=== PATIENT | female | born 1955 | race Caucasian/White ===

== ENCOUNTER 2024-01-31 16:29 | Inpatient (IN) | payer MEDICARE, SELFPAY ==
[2024-01-31] VITALS (7 sets, daily range): BP systolic 113–140; BP diastolic 74–83; BMI 25.0; BMI 27.0
--- NOTE | 2024-01-31 12:53 | ED.GENMED ---
History of Present Illness
General
Chief Complaint: Abdominal Symptoms
Source: patient
Exam Limitations: none
Time Seen by Provider: 01/31/24 12:24
Nursing documentation reviewed up to this point in time: agreed with
History of Present Illness
History of Present Illness:
PT IS A 68 Y/O F
h/o diverticulosis
no chronic problems
here with fever/chills/vomiting
started 4 days ago
she says it started with suspected fever and shaking chills; then she got nauseated and says she is vomiting with intake
she feels dehydrated
mild cough, fatigue
no back pain, urinary symptoms, sore throat
Past History
Past History
ED Past Medical History: GERD and Other (Diverticulosis, Diverticulitis, melanoma)
Social History
Personal: Single
Living: alone
Employment: Employed
Review of Systems
Review of Systems
Allergies reviewed?: Yes
All Other Systems: Not applicable
Phy Exam
Physical Exam
Physical Exam:
GENERAL: Alert , in no apparent distress, nonotoxic
EYE: pupils equal and reactive
NECK: Supple
ENT: o/p clr, mmm.
CARDIAC: Regular rate and rhythm .
LUNGS: Clear breath sounds bilaterally, no acute respiratory distress, no wheezes/rales/rhonchi
ABDOMEN: Soft mildly distended, without focal tenderness, no r/g, no cvat, normal bowel sounds
NEUROLOGICAL: Alert and oriented, no focal neuro deficits
SKIN: Warm and dry, skin intact.
MUSCULOSKELETAL: No edema, well perfused. neg bimal's sign
PSYCH: Normal and appropriate interaction.
Course
Orders/Labs/Results
Orders:
Orders
01/31/24
PTH [Intact PTH Includes Calcium] Urgent
01/31/24 12:48
0.9% Sodium Chloride 1000 ml [Nss] 1,000 ml IV BOLUS
Acetaminophen [Tylenol] 650 mg PO NOW STA
Ondansetron Injectable [Zofran] 4 mg IV NOW STA
01/31/24 13:11
COVID-19 Antigen Urgent
Source: Nasal Swab
Comprehensive Metabolic Panel Urgent
Lipase Urgent
Phosphorus Urgent
Comment: ADDON
TSH Reflex To Free T4 Urgent
Urinalysis Reflex To Culture Urgent
Date Specimen was Collected: 01/31/24
Time Specimen was Collected: 12:51
Urine Creatinine Urgent
Date Specimen was Collected: 01/31/24
Time Specimen was Collected: 12:51
Comment: ADD ON
Urine Microscopic Reflex Cult Urgent
Urine Protein Urgent
Date Specimen was Collected: 01/31/24
Time Specimen was Collected: 12:51
Comment: ADD ON
Urine Sodium Urgent
Date Specimen was Collected: 01/31/24
Time Specimen was Collected: 12:51
Comment: ADD ON
Vitamin D, 25-OH Urgent
Influenza A+B Rapid Molecular Urgent
JANA Source: Nasal Swab
Specimen Description:
Urine Culture Urgent
JANA Source: U
Specimen Description:
Date Specimen was Collected: 01/31/24
Time Specimen was Collected: 12:51
01/31/24 14:06
Bladder Scan- Treatment ONCE
01/31/24 14:55
0.9% Sodium Chloride 1000 ml [Nss] 1,000 ml IV BOLUS
01/31/24 15:09
CT Abd/pel Without Iv Or Oral Urgent
Comment:
Reason For Exam: arf, urine infection, vomiting, fever
CefTRIAXone [Rocephin] 1,000 mg IV NOW STA
01/31/24 15:53
Complete Blood Count/With Diff Urgent
Blood Culture Urgent
JANA Source: Blood/Venous
Specimen Description:
01/31/24 16:00
0.9% Sodium Chloride 1000 ml [Nss] 1,000 ml IV 150 mls/hr
01/31/24 16:06
NEPHROLOGY CONSULT Routine
Consulting Provider: Libertad Wood
Was physician already notified: Yes
Reason for consult: arf, hypercalcemia
01/31/24 16:07
Pamidronate Disodium [Aredia] 60 mg 0.9% Sodium Chloride 250 ml [Nss] 250 ml IV ONCE
01/31/24 16:14
Admit/Transfer Patient As Directed
Co-Sign Provider:
Level of Care: Inpatient admission
Assign to:: Telemetry
Physician / Group: jayda gutierrez
Diagnosis: ARf unclear, Nausea/vomiting, hypercalcemia, febrile illness
Reason for Telemetry: Arrhythmia
Date to Stop Telemetry: 02/03/24
Time to Stop Telemetry: 11:00
Reason for Hospitalization: ARf unclear, Nausea/vomiting, hypercalcemia, febrile illness
Expected length of stay greater than two midnights?: Yes
ELOS- Estimated Length of Stay in days: 4
I certify the patient meets the requirements for IP care: Yes
01/31/24 16:16
Code Status As Directed
Resuscitation Status: Full Code
01/31/24 16:19
PRN Pain Medication Management As Directed
May give lesser potent ordered pain med per pt: Yes
preference::
Protocol:: Medication orders for pain may be administered in a
manner that supports deferring to patient preference
when the pt is:
- Requesting an ordered lesser potent pain medication.
Least to most potent pain medications are defined
as: acetaminophen < NSAID < tramadol < opioids
(morphine, oxycodone, hydromorphone).
- Requesting a lesser dose of the same medication IF
ORDERED.
- Requesting a less intrusive route of administration
if both routes are prescribed by the provider (PO <
IV).
01/31/24 16:22
Add On- LAB Routine
Tests Added?: urine sodium, u creeatinine, urine protein
EKG [Electrocardiogram (*1)] Urgent
Reason for Study: Other
Other Reason for Exam: hypercalcemia
01/31/24 16:23
Bladder Scan As Directed
Follow Bladder Retention/Intermittent Cath Algorithm?: Yes
PRN if no void in __ hours: 6
Frequency: Per Retention Algorithm
If Bladder Scan Result >: 400
then:: Straight cath
Straight Cath As Directed
Frequency: Per Retention Algorithm
Additional Instructions: straight cath as needed per acute urinary retention algorithm for 24 hrs
Additional Instructions: for bladder scan greater than 400 mL
01/31/24 17:48
Acetaminophen [Tylenol] 650 mg PO Q4HPRN PRN
Ondansetron Injectable [Zofran] 4 mg IV Q6HPRN PRN
01/31/24 17:48
Activity As Directed
Activity Level: As Tolerated
Intake/ Output As Directed
Frequency: Per unit guidelines
Vital Signs As Directed
Frequency: Per unit guidelines
Weight As Directed
Frequency: Daily
DX Deep Vein Thrombosis Video Routine
01/31/24 20:00
Heparin 5,000 units SC Q12
02/01/24 06:37
Complete Blood Count/With Diff IN AM
Comprehensive Metabolic Panel IN AM
Magnesium IN AM
Protein Electrophoresis Reflex [S] IN AM
02/01/24 18:00
CefTRIAXone [Rocephin] 1,000 mg IV Q24H
02/02/24 06:00
Complete Blood Count/With Diff IN AM
Comprehensive Metabolic Panel IN AM
02/03/24 06:00
Complete Blood Count/With Diff IN AM
Comprehensive Metabolic Panel IN AM
02/03/24 11:00
DC Protocol for Telemetry ONCE
Abnormal Lab Results
01/31/24 01/31/24
13:11 15:53
WBC 11.4 H 10^3/uL
(4.8-10.8)
Hct 35.7 L %
(37.0-47.0)
MPV 10.9 H fL
(7.4-10.4)
Absolute Neuts (auto) 9.3 H 10^3/uL
(1.4-6.5)
Absolute Lymphs (auto) 0.7 L 10^3/uL
(1.2-3.4)
Absolute Monos (auto) 1.5 H 10^3/uL
(0.1-0.6)
Neutrophils % 80.8 H %
(42.2-75.2)
Lymphocytes % 5.7 L %
(20.5-51.1)
Monocytes % 12.7 H %
(1.7-9.3)
BUN 70 H mg/dl
(7-17)
Creatinine 3.2 H mg/dL
(0.6-1.0)
Calcium 13.7 H* mg/dl
(8.4-10.2)
Total Bilirubin 2.1 H mg/dl
(0.2-1.3)
AST 49 H U/L
(14-36)
ALT 67 H U/L
(0-35)
Alkaline Phosphatase 189 H U/L
(38-126)
Total Protein 6.0 L g/dl
(6.3-8.2)
Albumin 3.3 L g/dl
(3.5-5.0)
PTH Intact 235.1 H pg/ml
(13.6-85.8)
Ur Occult Blood Reflex 3+ A
(Negative)
Urine Nitrite (Reflex) Positive A
(Negative)
Urine Bilirubin 1+ A
(Negative)
Urine Urobilinogen 3+ A
(Neg - 1+)
Leukocyte Esterase Rfl 2+ A
(Negative)
Urine RBC 3-6 A /HPF
(0-2)
Urine WBC (Reflex) 26-30 A /HPF
(0-5)
Urine Bacteria (Reflex) Moderate A
(Negative)
Urine Total Protein 120 H mg/dl
(0-12)
Urine Albumin (Reflex) 1+ A
(Neg - Trace)
01/31/24 15:53
01/31/24 13:11
Vital Signs
Initial and Last Documented VS:
Initial Vital Signs
Temp Pulse Resp BP Pulse Ox
101.6 F H 105 16 113/76 100
01/31/24 12:12 01/31/24 12:12 01/31/24 12:12 01/31/24 12:12 01/31/24 12:12
Last Documented Vital Signs
Temp Pulse Resp BP Pulse Ox
97.7 F 84 16 133/79 96
02/01/24 07:30 02/01/24 07:30 02/01/24 07:30 02/01/24 07:30 02/01/24 07:30
MDM/Problems Addressed
Differential Diagnosis Includes:
pyelo, obstructing uropathy, renal failure, gastritis, choledocholithiasis
MDM/Problems Addressed:
68 yo F healthy; h/o gato int he past
4 days of chills/subjective fever and vomiting with eating/drinking
no abd pain, no cold sxs
febrile on arrival, bp stable
abdomen soft, nontender, mild distension
bladder scan 35
ARF bun 70, cr 3.2, ca 13.7
t bili 2.1, mild transmaminitis; lipase normal
pending noncon ct
ua nitrite pos, also with bili, awaitint he micro but i am empirically treating with rocephin
getting IVF; i think prerenal azotemia from not eating/drinking; wonder if she has some underlying maglignancy; but doing ct to r/o uro obstruction;
in meantime, she will be admitted, pending cultures, IV abx, IVF;
*Critical Care Note
Total Time (30-74mins, 75-104mins- exclusive of procedures): Not Applicable
ED Attending Note
-
Portions of this chart may have been created with voice recognition software.� Occasional wrong word or��sound alike� substitutions may have occurred due to the inherent limitations of voice recognition software.
Discharge Plan
Departure
Patient Disposition: Admit
Date of Disposition: 01/31/24
Time of Disposition: 15:12
Admit to: Med/Surg
Presentation/result/management discussed w/ accepting MD/DO: Hospitalist
Condition: Fair
Covid-19: Not Applicable
Discharge Problem:
Pyelonephritis, Acute renal failure
Interventions
Interventions:
*Risk Screen - Suicide Last Done: 01/31/24 13:25
*General Assessment Last Done: 01/31/24 13:25
*Neglect/Abuse Screening Last Done: 01/31/24 13:25
ED- Fall Risk Assessment Last Done: 01/31/24 13:25
*ED COVID-19 Vaccine History Last Done: 01/31/24 13:25
*Nursing Disposition Last Done: 01/31/24 17:45
VV-Xtzlcq-Sojxckhndl Assessment Last Done: 01/31/24 13:25
Discharge Date and Time
Discharge Date/Time: 01/31/24 17:45
[2024-01-31] MEDS: ZOFRAN 4 MG IV (13:20)
[2024-01-31] MEDS: TYLENOL 650 MG PO (13:20)
[2024-01-31] MEDS: NSS 1000 IV ×4 (13:23→23:59)
[2024-01-31 13:39] LABS: COVID-19 Antigen Negative (Negative)
[2024-01-31 13:58] LABS: ALT (SGPT) 67 U/L (0-35); AST (SGOT) 49 U/L (14-36); Albumin 3.3 g/dl (3.5-5.0); Alkaline Phosphatase 189 U/L (38-126); Blood Urea Nitrogen 70 mg/dl (7-17); Calcium 13.7 mg/dl (8.4-10.2); Carbon Dioxide 24 mmol/L (22-30); Chloride 104 mmol/L (98-107); Estimated Creatinine Clearance 16 ml/min; Glucose 99 mg/dl (70-99); Lipase 35 U/L (23-300); Potassium 4.5 mmol/L (3.5-5.1); Sodium 139 mmol/L (135-145); Total Bilirubin 2.1 mg/dl (0.2-1.3); eGFR 15.39
[2024-01-31 14:53] LABS: Urine Albumin 1+ (Neg - Trace); Urine Bilirubin 1+ (Negative); Urine Character Clear (Clear); Urine Color Yellow; Urine Glucose Negative (Negative); Urine Ketone Negative (Negative); Urine Leukocyte 2+ (Negative); Urine Nitrite Positive (Negative); Urine Occult Blood 3+ (Negative); Urine Specific Gravity 1.015 (<1.030); Urine Urobilinogen 3+ (Neg - 1+)
[2024-01-31] MEDS: ROCEPHIN 1000 MG IV (15:18)
--- NOTE | 2024-01-31 15:30 | HPS.HSE ---
Family Physician
-
Family Physician: Darrell Mcgregor
Chief Complaint
-
Nausea, vomiting, fever
History of Present Illness
68-year-old female who reports 5 days ago starting with subjective fever, shaking chills. She then developed persistent nausea, vomiting and chills over the past 4 days with inability to keep anything down including sips of water. She reports she
has voided only once a day for the last 4 days. She complains of feeling dehydrated with overall fatigue and a mild cough. She denies any headache, sore throat, runny nose, chest pain, palpitations, shortness of breath, abdominal pain, flank pain,
diarrhea, urinary symptoms, rash, sick contacts. She reports only taking 1 dose of Naprosyn on Tuesday which she would only take as needed if sick. She was unable to hold that down due to vomiting. She has not taking any of her other medications.
She has past medical history of GERD, diverticulosis/diverticulitis, melanoma right leg removal 2005, prior cholecystectomy
Medical History
Past Medical History
Past Medical History: Reports Other
Additional Past Medical History:
GERD
diverticulosis/diverticulitis
melanoma right leg removal 2005
prior cholecystectomy
Past Surgical History: Reports Other
Additional Past Surgical History:
Melanoma with removal from right leg 2005
Cholecystectomy
Ectopic 1993
Tonsillectomy
[place] teeth extraction
Social History
Tobacco: Smoker (Three-quarter pack a day x 49 years, 1/4 pack a day x 1 year 2019 07-2023)
Alcohol: Occasional (Twice a month)
Drug: None
Living: Alone
Employment: Employed (At a school)
Family History
Family History: Other (Mother ruptured aneurysm history hypertension, DM 2)
Allergies / Home Medications
Allergies reflects when Allergies were last updated in [facility].
Home Medications with original date entered in [facility]
Allergy/Medication List:
Allergies
Allergy/AdvReac Type Severity Reaction Status Date / Time
codeine [Codeine] Allergy sweating, Verified 01/31/24 12:14
lightheaded,
passed out
Opioids - Morphine Analogues Allergy severe Verified 01/31/24 12:14
headachaes,
passed out
Home Medications
cyanocobalamin (vitamin B-12) 1,000 mcg tablet 1,000 mcg PO DAILY 01/31/24
ferrous sulfate 325 mg (65 mg iron) tablet 325 mg PO DAILY 01/31/24
magnesium oxide 400 mg PO DAILY 01/31/24
naproxen sodium 220 mg tablet (Aleve) 220 mg PO BIDPRN PRN mild pain 01/31/24
Review of Systems
-
History Source: Patient
A 12 point ROS was completed and negative except as noted: Yes
Constitutional: Reports Fever and Chills; Denies Fatigue
EENT: Denies Sore Throat, Mouth Swelling or Runny Nose
Respiratory: Denies Cough or Trouble Breathing
Cardiac: Denies Chest Pain, Diaphoresis, Palpitations or Syncope
Abdomen/GI: Reports Nausea and Vomiting; Denies Abdominal Pain, Diarrhea, Constipated, Bloody Stools or Black Stools
: Denies Dysuria, Frequency, Flank Pain, Incontinence, Difficulty Voiding or Urgency
Musculoskeletal: Denies Joint Pain, Muscle Pain or Edema
Skin: Denies Itching or Rash
Neurological: Denies Dizzy, Headache or Weakness
Endocrine: Reports No Symptoms
Hematologic/Lymphatic: Reports No Symptoms
Psych: Reports Calm
Physical Exam
Vital Signs
Vital Signs
Temp Pulse Resp BP Pulse Ox
99.0 F 82 16 132/79 99
01/31/24 15:21 01/31/24 14:46 01/31/24 14:46 01/31/24 14:46 01/31/24 14:46
Physical Exam
General: Comfortable, Conversant, Fever and Chills; No Pain
HEENT: NormoCephalic, Anicteric, PERRLA, Linganore Conjunctivae, No Ptosis, Neck Nontender (Negative nuchal rigidity) and Other (Dry oral mucosa)
Respiratory: Clear; No Wheezes, Rales or Rhonchi
Cardiac: S1/S2 and Regular Rhythm; No Murmur, Rub, Gallop or Peripheral Edema
Breast: Deferred by me
GI: Soft, Non Tender, Non Distended, Normal Bowel Sounds and No Hepatosplenomegaly
Rectal: Deferred by Provider
Genito-urinary: Deferred by me and No costovertebral tender
Musculoskeletal: No Clubbing, No Cyanosis and No Edema
Skin: Warm and Dry; No Rash or Jaundice
Neuro: AO x 3, No Motor Deficits, Nonfocal/grossly intact, Cranial Nerves Intact and No Sensory Deficits; No Slurred Speech, Facial Droop or Tremors
Psych: Calm
Laboratory Results
-
01/31/24 13:11
Laboratory Results
Total Bilirubin 2.1 mg/dl (0.2-1.3) H 01/31/24 13:11
AST 49 U/L (14-36) H 01/31/24 13:11
ALT 67 U/L (0-35) H 01/31/24 13:11
Alkaline Phosphatase 189 U/L (38-126) H 01/31/24 13:11
Lipase 35 U/L (23-300) 01/31/24 13:11
Data Reviewed
-
Lab Data: Labs Reviewed by me
Impression/Plan
-
Impression/plan:
Admit to telemetry
# Pyuria-asymptomatic
Temp 101.6 F, HR 82, 132/79, COVID-negative
-Follow urine culture, blood culture
-IV Rocephin 1gm cont
-follow cbc,cmp
check flu swab
#Acute renal failure possibly 2/2 nausea vomiting
Creat 3.2/bun 70
IV NSS 2 L, continue IV NSS 125cc/h
-Follow BMP
-Consult nephro
-Hold Naprosyn 220 mg twice daily as needed home med pt took one dose 01/27/24 does not take routinely
CT abd pelvis Pending
#Acute hypercalcemia
Corrected calcium 14.3
-IV NSS 2 L given in ER then Iv NSS 125cc/hr
-Pamidronate 60 mg IV x 1
-Follow calcium level in a.m.
-check pth, vit d, phos, mag, tsh free t4 , spep
- check EKG
#Acute transaminitis likely reactive
-Follow CMP
#Diverticulosis/diverticulitis Hx
#Melanoma with removal from right leg 2005
DVT prophylaxis
Subcu heparin
Full code
[2024-01-31 15:55] LABS: Urine Amorphous Seen
[2024-01-31 15:57] LABS: Urine Granular Cast 0-2 /LPF (0); Urine Hyaline Cast 0-2 /LPF (0-2)
[2024-01-31 15:58] LABS: Urine Bacteria Moderate (Negative); Urine White Cell 26-30 /HPF (0-5)
[2024-01-31 16:07] LABS: % Basophils 0.2 % (0-2); % Eosinophils 0.3 % (0-6); % Immature Granulocytes 0.3 % (0-0.5); % Lymphocytes 5.7 % (20.5-51.1); % Monocytes 12.7 % (1.7-9.3); % Neutrophils 80.8 % (42.2-75.2); Absolute Lymphocytes 0.7 10^3/uL (1.2-3.4); Absolute Monocytes 1.5 10^3/uL (0.1-0.6); Absolute Neutrophils 9.3 10^3/uL (1.4-6.5); Hematocrit 35.7 % (37.0-47.0); Hemoglobin 12.4 g/dL (12.0-16.0); Mean Corp Hgb Conc. 34.7 g/dL (33.0-37.0); Mean Corpuscular Hgb 29.2 pg (27.0-31.0); Mean Platelet Volume 10.9 fL (7.4-10.4); Nucleated Red Blood Cells % 0 %; Platelet Count 242 10^3/uL (130-400); Red Blood Cell Count 4.25 10^6/uL (4.20-5.40); Red Cell Dist. Width 14.1 % (11.5-14.5); White Blood Cell Count 11.4 10^3/uL (4.8-10.8)
--- NOTE | 2024-01-31 16:11 | W.CON.NEPH ---
Consultation
-
Date/Time Consultation Requested: 01/31/24 1606
Date/Time Consultation Performed: 01/31/24 1630
Requesting Provider: Krystin Perez
Performing Provider: Libertad Andrews
Reason for Consultation: IMER, high calcium
Medical History
-
Chief Complaint: n/v, fever
History of Present Illness:
68-year-old female who has chr mild hypercalcemia, kidney stone, GERD, melanoma resection Diverticulosis had fever since 5 days ago, since then She developed persistent nausea, vomiting and chills over the past 4 days with inability to keep anything
down including sips of water. She reports she has voided only once a day for the last 4 days. She complains of feeling dehydrated with overall fatigue and a mild cough. She denies any headache, chest pain, shortness of breath, abdominal pain,
flank pain, diarrhea, urinary symptoms, rash, sick contacts. She reports only taking 2 dose of Naprosyn on Tuesday which she would only take as needed if sick. She was unable to hold that down due to vomiting. She has not taking any of her other
medications.
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 She could not continue to work yesterday with severe fatigue. She has not seen Doctor for 6years and just recently saw new PCP and had not had chance to get blood work yet.
In ER her cr is 3.2, tomás corrected 14.3. She reports taking of VIt D2 weekly for last 2months, denies any calcium meds or tumps. known h/o kidney stones and she thinks may be passing stone with in last 1month as she noticed mild hematuria resolved
on its own.
Past Medical History
chr hypercalcemia
K stone
GERD
diverticulosis/diverticulitis
Past Surgical History: Other (Melanoma with removal from right leg 2005 Cholecystectomy Ectopic 1993 Tonsillectomy [place] teeth extraction)
Social History
Tobacco: Smoker (Three-quarter pack a day x 49 years, 1/4 pack a day x 1 year 2019 07-2023, last smoked few days ago)
Alcohol: Occasional
Living: Alone
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
Family History
Mother dies with ruptured aneurysm, HTN, DM
no CKD
Allergies / Home Medications
Allergy/AdvReac Type Severity Reaction Status Date / Time
codeine [Codeine] Allergy sweating, Verified 01/31/24 12:14
lightheaded,
passed out
Opioids - Morphine Analogues Allergy severe Verified 01/31/24 12:14
headachaes,
passed out
�Medication �Instructions �Recorded �Confirmed �Type
cyanocobalamin (vitamin B-12) 1,000 mcg PO DAILY 01/31/24 01/31/24 History
1,000 mcg tablet
ferrous sulfate 325 mg (65 mg 325 mg PO DAILY 01/31/24 01/31/24 History
iron) tablet
magnesium oxide 400 mg PO DAILY 01/31/24 01/31/24 History
naproxen sodium 220 mg tablet 220 mg PO BIDPRN PRN mild pain 01/31/24 01/31/24 History
(Aleve)
Review of Systems
-
All complete 12 point ROS have been inquired and found negative other than stated in HPI
Physical Exam
Vital Signs
Vital Signs
Temp Pulse Resp BP Pulse Ox
99.0 F 82 16 132/79 99
01/31/24 15:21 01/31/24 14:46 01/31/24 14:46 01/31/24 14:46 01/31/24 14:46
Lab Results
WBC 11.4 10^3/uL (4.8-10.8) H 01/31/24 15:53
RBC 4.25 10^6/uL (4.20-5.40) 01/31/24 15:53
Hgb 12.4 g/dL (12.0-16.0) 01/31/24 15:53
Hct 35.7 % (37.0-47.0) L 01/31/24 15:53
Plt Count 242 10^3/uL (130-400) 01/31/24 15:53
Sodium 139 mmol/L (135-145) 01/31/24 13:11
Potassium 4.5 mmol/L (3.5-5.1) 01/31/24 13:11
Chloride 104 mmol/L (98-107) 01/31/24 13:11
Carbon Dioxide 24 mmol/L (22-30) 01/31/24 13:11
BUN 70 mg/dl (7-17) H 01/31/24 13:11
Creatinine 3.2 mg/dL (0.6-1.0) H 01/31/24 13:11
eGFR 15.39 01/31/24 13:11
Glucose 99 mg/dl (70-99) 01/31/24 13:11
Albumin 3.3 g/dl (3.5-5.0) L 01/31/24 13:[address] abd with out contrast:
IMPRESSION:
1. Mild bilateral renal/perinephric edema, right greater than left. Findings nonspecific with differential including recently passed stone or ascending urinary tract infection/pyelonephritis, in the appropriate clinical context. Evaluation limited
without contrast.
2. Mild L1 compression deformity, new from 2016 and age indeterminate, although chronic appearing. Recommend correlation for any point tenderness in this region.
3. No other significant abnormality identified in the abdomen or pelvis, within the limits of unenhanced CT, as described above.
Physical Exam
General: Awake, Alert, Oriented, AOx3 and No Distress
HEENT: EOMI, Anicteric, Neck Supple, No JVD and Other (dry mucous mem)
Respiratory: Clear, Normal Excursion and Nonlabored Respirations
Cardiac: S1/S2 and Regular Rate/Rhythm
Breast: Deferred by me
Abdomen: Soft, Nontender and Nondistended
Rectal: Deferred by Provider
Musculoskeletal: No Edema
Skin: No Rash and No Cyanosis
Neuro: Nonfocal/Grossly Intact
Psych: Mood/afflect pleasant, Insight/judgement good and Appropriate
Data Reviewed
-
Labs: Labs Reviewed by me and Discussed with Patient
Assessment/Plan
-
IMP:
Febrile illness
perinephric edema Rt>left, recently passed stone as per history and can not r/o pyelo
Acute renal failure-no baseline
Acute on chronic Hypercalcemia
K stone
Transaminitis
mild hypoalbuminemia
Diverticulosis/diverticulitis Hx
Melanoma with removal from right leg 2005
Plan:
A/w poor po tolerance and fever
IMER possible prerenal with poor intake+hypercalcemia
however can not r/o underlying CKD since had no medical care for 6yrs
UA ?UTI, check U lytes, bladder scan
ok for isotonic IVF [id number]
agree with Pamidronate 60mg x1, avoid tomás or vit D meds
check vit D, PTH,TSH if neg then check PTHrP
also check paraprotein w/u
BP are stable
avoid nephrotoxins
labs in am
d/w pt
No emergent indication of HD
CT results noted after seeing pt-pernephric edema Rt>left, recently passed stone as per history and can not r/o pyelo-await cx, abx per primary
--- NOTE | 2024-01-31 16:28 | W.PN.UPDATE ---
Update Note
Progress Note Update
This is an addendum to the H&P written by Krystin Perez on 01/31/2024.
68-year-old female history of melanoma of skin status post resection, here for persistent nausea/vomiting over the past week. She has also had fever with chills. Denies any abdominal pain or diarrhea. Denies any urinary symptoms. Denies any tick
bites or rashes.
Labs show leukocytosis, hypercalcemia of 13.7, IMER with creatinine of 3.2, mild transaminitis. Although IMER and hypercalcemia can be exacerbated by hypovolemia from vomiting there is concern for underlying malignancy versus multiple myeloma. IV
fluids, pamidronate, check PTH, vitamin D, SPEP/UPEP. Nephrology consulted. Unclear source of the fever although denies urinary symptoms. Check blood culture, ceftriaxone. CT abdomen pelvis pending.
[2024-01-31] MEDS: AREDIA 270 MG IV (16:55)
[2024-01-31 17:28] LABS: Urine Protein 120 mg/dl (0-12); Urine Sodium 62 mmol/L (30-90)
[2024-01-31 18:20] LABS: Phosphorus 3.6 mg/dl (2.5-4.5)
[2024-01-31 18:24] LABS: Intact PTH 235.1 pg/ml (13.6-85.8)
[2024-01-31 18:32] LABS: Vitamin D, 25-OH*** 32.2 ng/mL (30-80)
[2024-01-31 18:46] LABS: TSH Reflex To Free T4 0.47 uIU/ml (0.47-4.68)
[2024-01-31] MEDS: HEPARIN 5000 UNITS SC (21:24)
[2024-01-31 21:43] LABS: Calcium 12.9 mg/dl (8.4-10.2)
[2024-02-01 03:28] VITALS: BP 143/78
[2024-02-01 05:30] VITALS: BMI 27.3
[2024-02-01] MEDS: NSS 1000 IV ×3 (05:32→17:32)
[2024-02-01 07:30] VITALS: BP 133/79
[2024-02-01] MEDS: HEPARIN 5000 UNITS SC ×2 (08:02→19:45)
[2024-02-01 08:03] LABS: % Basophils 0.2 % (0-2); % Eosinophils 0.5 % (0-6); % Immature Granulocytes 0.8 % (0-0.5); % Lymphocytes 5.6 % (20.5-51.1); % Monocytes 10.1 % (1.7-9.3); % Neutrophils 82.8 % (42.2-75.2); Absolute Eosinophils 0.1 10^3/uL (0-0.7); Absolute Immature Granulocytes 0.1 10^3/uL (0-0.05); Absolute Lymphocytes 0.7 10^3/uL (1.2-3.4); Absolute Monocytes 1.3 10^3/uL (0.1-0.6); Absolute Neutrophils 10.6 10^3/uL (1.4-6.5); Hematocrit 35.1 % (37.0-47.0); Hemoglobin 12.1 g/dL (12.0-16.0); Mean Corp Hgb Conc. 34.5 g/dL (33.0-37.0); Mean Corpuscular Hgb 29.5 pg (27.0-31.0); Mean Corpuscular Volume 85.6 fL (81.0-99.0); Mean Platelet Volume 11.3 fL (7.4-10.4); Nucleated Red Blood Cells % 0 %; Platelet Count 252 10^3/uL (130-400); Red Cell Dist. Width 14.4 % (11.5-14.5); White Blood Cell Count 12.8 10^3/uL (4.8-10.8)
[2024-02-01 08:23] LABS: ALT (SGPT) 60 U/L (0-35); AST (SGOT) 43 U/L (14-36); Albumin 2.8 g/dl (3.5-5.0); Alkaline Phosphatase 191 U/L (38-126); Blood Urea Nitrogen 61 mg/dl (7-17); Calcium 12.9 mg/dl (8.4-10.2); Carbon Dioxide 19 mmol/L (22-30); Chloride 111 mmol/L (98-107); Estimated Creatinine Clearance 22 ml/min; Glucose 71 mg/dl (70-99); Magnesium 1.9 mg/dl (1.6-2.3); Potassium 4.1 mmol/L (3.5-5.1); Sodium 142 mmol/L (135-145); Total Protein 5.4 g/dl (6.3-8.2); eGFR 21.73
--- NOTE | 2024-02-01 09:36 | W.PN.HOSP.TC ---
Addendum entered and electronically signed by Lyndsay Torre MD 02/01/24 16:19:
I personally performed a history and physical exam of the patient and discussed management with the resident. I reviewed the resident's note and agree with the documented findings and plan of care HPI/CC except for change in MY documentation.
68-year-old female with fever and chills. She also had nausea and vomiting
CT abdomen and pelvis without contrast-mild bilateral renal and perinephric edema right greater than left. Findings nonspecific with differential including recently passed stone or ascending UTI/pyelonephritis. Mild L1 compression deformity
CVS: S1-S2 normal
Chest: CTA B/L
Abdomen: Soft, NT / Bowel sounds present
Extremities: No edema, normal pulses
# UTI-likely E. coli
Clinically looks like pyelonephritis versus recently passed a stone
Continue ceftriaxone
Urine cultures with E. coli. Blood cultures pending
# Acute renal failure likely secondary to prerenal causes also use of NSAIDs
No previous creatinine available since 2014
Hold Naprosyn
Avoid nephrotoxic medicines
IV fluids follow creatinine
# Hypercalcemia unclear reasons
EKG with no changes
Dehydration could be contributing but levels too high
Status post pamidronate
Avoid calcium or vitamin D supplements
Elevated intact PTH-likely primary hyperparathyroidism
Patient has a history of parathyroid scan with right lower pole parathyroid adenoma-September 2020
SPEP and UPEP ordered
Follow with hydration-calcium better
CXR as she is a smoker to rule out other causes
# Transaminitis
# Diverticulosis
# History of nephrolithiasis
# GERD
# Hypoalbuminemia
# History of melanoma surgery right leg 2005
# Multilevel discogenic DJD thoracolumbar spine
# Smoker-cessation counseling
# DVT prophylaxis-subcutaneous heparin
# Full code
Original Note:
Today's Communication/Plan
-
chest xray, pending labs, pt/ot
Assessment / Plan
Assessment / Plan
68yo F with PMH kidney stones, tobacco use who presented to ED 01/30 for poor oral intake. 5 days prior to admission, she felt very sick, weak, and was shaking. She also had some vomiting, which last occurred 01/28. She began feeling a little better
but had poor oral intake for several more days.
#Hypercalcemia
#Tobacco use
- Per patient home supplements include '50,000 of vitamin D' every 1-2 weeks (which was her mother's prescription), magnesium, iron, b12
- Corrected Ca on admission 14.3 --> 14.2 today
- Discontinue calcium supplementation
- PTH, plasma and urinary protein electrophoresis pending
- Will check chest xray 2 view
#Leukocytosis
- Unclear etiology, possibly related to recent illness prior to admission
- WBC 11.4 on admission --> 12.8 today
- Febrile to 101.6 on admission (@1212 01/30), has been afebrile since.
- Tcurrent 97.7
- Continue to follow fever trend, CBC tomorrow
#IMER vs CKD
- Cr on admission 3.2 --> 2.4, unknown baseline
- Cr improving with hydration, may have prerenal component though would expect urine sodium <20 if solely prerenal
- Continue IV fluids and trend Cr daily
- Avoid nephrotoxic medications and renally dose if appropriate
#asymptomatic pyuria
#h/o renal stones- most recently this summer
- urine culture pending
- CT with perinephric edema, nonspecific; possible etiologies recently passed stone vs pyelonephritis
#Elevated LFTs
- AST, ALT, Tbili, alk phos elevated on admission --> stable today
- Repeat CMP tomorrow
#H/o diverticulosis
#H/o melanoma s/p excision 2005 from R leg
#Mild L1 compression deformity, likely chronic, seen on CT
Anticipated Discharge: 24 - 48 hours
Subjective/Interval History
-
Date of Service: February 01, 2024
No acute events overnight. She says she feels 'excellent' compared to yesterday. She tolerated breakfast this morning, and denies nausea, vomiting, abdominal pain. She denies lightheadedness, dizziness, chest pain, shortness of breath, nausea,
vomiting, abdominal pain, diarrhea. Last bowel movement 01/29 AM, denies black or bloody stools. She ambulates to bathroom with assistance, she feels weak. At baseline at home she ambulates independently and does not require a walker.
Objective Data
-
Labs:
Laboratory Results
01/31/24 02/01/24
21:20 06:37
WBC 12.8 H
Hgb 12.1
Hct 35.1 L
Plt Count 252
Sodium 142
Potassium 4.1
Chloride 111 H
Carbon Dioxide 19 L
BUN 61 H
Creatinine 2.4 H
Glucose 71
Calcium 12.9 H 12.9 H
Total Bilirubin 2.0 H
AST 43 H
ALT 60 H
Alkaline Phosphatase 191 H
Vital Signs:
Vital Signs
Temp Pulse Resp BP Pulse Ox
97.7 F 84 16 133/79 96
02/01/24 07:30 02/01/24 07:30 02/01/24 07:30 02/01/24 07:30 02/01/24 07:30
I&O
01/31/24 02/01/24 02/02/24
06:59 06:59 06:59
Intake Total 1800 / 1800
Balance 1800 / 1799
Review of Systems
-
History Source: Patient
All other systems: Reviewed and negative
Physical Exam
-
General: Well Developed, Well Nourished, No Apparent Distress, Comfortable and Conversant
HEENT: Normocephalic and Atraumatic
Respiratory: Clear to Auscultation and Non Labored Respirations
Cardiac: Regular Rhythm and S1/S2
GI: Soft, Nontender, Nondistended and Normal Bowel Sounds
Musculoskeletal: No Cyanosis and No Edema
Skin: Warm and Dry
Neuro: Awake, Alert, Oriented, AO x 3 and Nonfocal/Grossly Intact
Psych: Calm and Intact Judgement/Insight
Data Reviewed
-
CT Scan: Image personally visualized and interpreted, Report Reviewed by me and Discussed with Physician
Labs: Labs Reviewed by me and Discussed with Physician
--- NOTE | 2024-02-01 11:28 | W.PN.NEPH.PH ---
Today's Communication / Plan
-
IVF
Assessment/Plan
-
IMP:
Febrile illness
perinephric edema Rt>left, recently passed stone as per history and can not r/o pyelo
Acute renal failure-no baseline
Acute on chronic Hypercalcemia
K stone
Transaminitis
mild hypoalbuminemia
Diverticulosis/diverticulitis Hx
Melanoma with removal from right leg 2005
Plan:
follow BMP
continue IVF
hyperCa likely from right lower pole parathyroid adenoma seen on 09/30/20 PTHscan, given elevated PTH level
will need repeat Parathyroid nuclear scan as outpatient and referral to surgery for PTX (Dr. Summers, [facility])
If Calcium not lower tomorrow, redose aredia
-
-
Date of Service: February 01, 2024
CC / HPI / ROS
-
Chief Complaint:
IMER
History of Present Illness:
IMER/Cr better at 2.5
Calcium still high 12.9 after aredia
BP stable
Review of Systems:
no CP/SOB
Labs
-
Labs:
WBC 12.8 10^3/uL (4.8-10.8) H 02/01/24 06:37
RBC 4.10 10^6/uL (4.20-5.40) L 02/01/24 06:37
Hgb 12.1 g/dL (12.0-16.0) 02/01/24 06:37
Hct 35.1 % (37.0-47.0) L 02/01/24 06:37
Plt Count 252 10^3/uL (130-400) 02/01/24 06:37
Sodium 142 mmol/L (135-145) 02/01/24 06:37
Potassium 4.1 mmol/L (3.5-5.1) 02/01/24 06:37
Chloride 111 mmol/L (98-107) H 02/01/24 06:37
Carbon Dioxide 19 mmol/L (22-30) L 02/01/24 06:37
BUN 61 mg/dl (7-17) H 02/01/24 06:37
Creatinine 2.4 mg/dL (0.6-1.0) H 02/01/24 06:37
eGFR 21.73 02/01/24 06:37
Glucose 71 mg/dl (70-99) 02/01/24 06:37
Calcium 12.9 mg/dl (8.4-10.2) H 02/01/24 06:37
Phosphorus Cancelled 01/31/24 16:01
Albumin 2.8 g/dl (3.5-5.0) L 02/01/24 06:37
Physical Exam
-
Vital Signs:
Vital Signs
Temp Pulse Resp BP Pulse Ox
97.7 F 84 16 133/79 96
02/01/24 07:30 02/01/24 07:30 02/01/24 07:30 02/01/24 07:30 02/01/24 07:30
Cardiovascular:: Regular rate and rhythm
Respiratory:: Bilateral: CTA
Lung Excursion:: Normal
Abdomen:: Nontender and Soft
Bowel Sounds:: Normal
Extremity Edema:: None: Bilateral:
[2024-02-01 11:39] VITALS: BP 143/79
--- NOTE | 2024-02-01 13:01 | CM ---
CM met with Janki and her daughter to review the Advance Directive forms as well as Power of Senior Associate. Questions answered and provided education regarding the intent of the form, as a means of allowing family to understand her wishes for care
and/or interventions if she is nearing the end of her life and Janki is unable to speak for herself. Questions answered and pt's daughter was provided with my card for any follow up questions.
Janki has not had any medical follow up in 6 years; recommendation for follow up for parathyroid nuclear scan as outpatient and referral to Dr. Summers, surgeon at [facility].
Plan: Janki will be discharged to her daughter's home with home care services; Claudia is known to the family; referral to be sent via [facility].
[2024-02-01 13:06] VITALS: BMI 27.3
[2024-02-01 15:59] VITALS: BP 131/80
--- NOTE | 2024-02-01 16:04 | PTCARENOTE ---
Pt AA x3, CHEN well, OOB to BR/ambulatory in room with assist x1/walker; tires easily; unsteady w/OOB activity. Fall prec maintained. VSS. Telemetry: NSR. On room air- no c/o SOB. Abd soft, rounded, amelia reg diet; appetite fair. Voids in BR
without difficulty. IVF's NSS @ 150 ml/hr infusing via Rt forearm without sx of infiltration. Resting in bed at present. Will continue to monitor.
[2024-02-01 17:15] VITALS: BP 135/79
[2024-02-01] MEDS: STERILE WATER FOR INJECTION 10 ML IV (17:29)
[2024-02-01] MEDS: FLUSH (NSS) 1 FLUSH IV (17:30)
[2024-02-01] MEDS: ROCEPHIN 1000 MG IV (17:30)
[2024-02-01] MEDS: TYLENOL 650 MG PO (18:45)
[2024-02-01 23:07] VITALS: BP 132/75
[2024-02-02] MEDS: NSS 1000 IV ×4 (00:18→15:36)
[2024-02-02 03:10] VITALS: BP 133/75
[2024-02-02 04:59] VITALS: BMI 27.4
[2024-02-02 07:23] LABS: % Basophils 0.3 % (0-2); % Eosinophils 1.9 % (0-6); % Immature Granulocytes 1.1 % (0-0.5); % Lymphocytes 9.3 % (20.5-51.1); % Monocytes 10.6 % (1.7-9.3); % Neutrophils 76.8 % (42.2-75.2); Absolute Eosinophils 0.2 10^3/uL (0-0.7); Absolute Immature Granulocytes 0.1 10^3/uL (0-0.05); Absolute Lymphocytes 1.1 10^3/uL (1.2-3.4); Absolute Monocytes 1.2 10^3/uL (0.1-0.6); Absolute Neutrophils 8.8 10^3/uL (1.4-6.5); Hematocrit 35.3 % (37.0-47.0); Hemoglobin 12.2 g/dL (12.0-16.0); Mean Corp Hgb Conc. 34.6 g/dL (33.0-37.0); Mean Corpuscular Hgb 29.6 pg (27.0-31.0); Mean Corpuscular Volume 85.7 fL (81.0-99.0); Mean Platelet Volume 10.6 fL (7.4-10.4); Nucleated Red Blood Cells % 0 %; Platelet Count 278 10^3/uL (130-400); Red Blood Cell Count 4.12 10^6/uL (4.20-5.40); Red Cell Dist. Width 14.6 % (11.5-14.5); White Blood Cell Count 11.5 10^3/uL (4.8-10.8)
[2024-02-02 07:44] LABS: ALT (SGPT) 52 U/L (0-35); AST (SGOT) 33 U/L (14-36); Albumin 2.8 g/dl (3.5-5.0); Alkaline Phosphatase 226 U/L (38-126); Blood Urea Nitrogen 47 mg/dl (7-17); Calcium 11.3 mg/dl (8.4-10.2); Carbon Dioxide 17 mmol/L (22-30); Chloride 115 mmol/L (98-107); Estimated Creatinine Clearance 27 ml/min; Glucose 78 mg/dl (70-99); Potassium 3.9 mmol/L (3.5-5.1); Sodium 144 mmol/L (135-145); Total Bilirubin 1.4 mg/dl (0.2-1.3); Total Protein 5.5 g/dl (6.3-8.2); eGFR 28.76
[2024-02-02] MEDS: HEPARIN 5000 UNITS SC ×2 (07:57→20:30)
--- NOTE | 2024-02-02 08:30 | W.PN.HOSP.TC ---
Addendum entered and electronically signed by Lyndsay Torre MD 02/02/24 15:13:
I personally performed a history and physical exam of the patient and discussed management with the resident. I reviewed the resident's note and agree with the documented findings and plan of care HPI/CC except for change in MY documentation.
68-year-old female with fever and chills. She also had nausea and vomiting
CT abdomen and pelvis without contrast-mild bilateral renal and perinephric edema right greater than left. Findings nonspecific with differential including recently passed stone or ascending UTI/pyelonephritis. Mild L1 compression deformity
CVS: S1-S2 normal
Chest: CTA B/L
Abdomen: Soft, NT / Bowel sounds present
Extremities: No edema
# UTI-likely E. coli
Clinically looks like pyelonephritis versus recently passed a stone
Continue ceftriaxone
Urine cultures with E. coli. Blood cultures negative
# Acute renal failure likely secondary to prerenal causes also use of NSAIDs
No previous creatinine available since 2014
Hold Naprosyn
Avoid nephrotoxic medicines
IV fluids follow creatinine
# Hypercalcemia likely secondary to primary hyperparathyroidism
EKG with no changes
Status post pamidronate
Avoid calcium or vitamin D supplements
Elevated intact PTH-likely primary hyperparathyroidism
Patient has a history of parathyroid scan with right lower pole parathyroid adenoma-September 2020
SPEP and UPEP ordered
Follow with hydration-calcium better
CXR-unremarkable
Needs parathyroidectomy as outpatient-patient aware and will follow up may need updated scan
# Transaminitis- Better
# Diverticulosis
# History of nephrolithiasis
# GERD
# Hypoalbuminemia
# History of melanoma surgery right leg 2005
# Multilevel discogenic DJD thoracolumbar spine
# Smoker-cessation counseling
# DVT prophylaxis-subcutaneous heparin
# Full code
As long as creatinine improves and calcium stays stable we can discharge the patient tomorrow possibly she will need updated parathyroid scan and parathyroidectomy as outpatient. Will need to remain hydrated
Original Note:
Today's Communication/Plan
-
continue IVF, PT/OT, nephro following
Assessment / Plan
Assessment / Plan
68yo F with PMH kidney stones, tobacco use who presented to ED 01/30 for poor oral intake. 5 days prior to admission, she felt very sick, weak, and was shaking. She also had some vomiting, which last occurred 01/28. She began feeling a little better
but had poor oral intake for several more days.
#Hypercalcemia
#Primary hyperparathyroidism
#Parathyroid adenoma
- Per patient home supplements include '50,000 of vitamin D' every 1-2 weeks (which was her mother's prescription), magnesium, iron, b12
- Corrected Ca on admission 14.3 --> 12.3 today
- PTH 235 on admission and patient with known history of parathyroid adenoma
- Elevated alk phos likely bone origin
- plasma and urinary protein electrophoresis pending
- Discontinue calcium supplementation
- S/p aredia x1. Nephrology following, appreciate recs.
- Continue IVF and await nephrology recs regarding additional dose of aredia
- Will need follow up outpatient regarding surgery for adenectomy
#Tobacco use
- xray no focal masses
- Would benefit from outpatient low dose CT for screening if not done before
#Leukocytosis
- Unclear etiology, possibly related to recent illness prior to admission
- WBC 11.4 on admission --> 11.5 today
- Febrile to 101.6 on admission (@1212 01/30), has been afebrile since.
- Tcurrent 98 this AM
- Continue to follow fever trend, CBC tomorrow
#IMER vs CKD
- Cr on admission 3.2 --> 1.9, unknown baseline
- Cr improving with hydration, may have prerenal component though would expect urine sodium <20 if solely prerenal
- Continue IV fluids and trend Cr daily
- Avoid nephrotoxic medications and renally dose if appropriate
#asymptomatic bacteruria
#h/o renal stones- most recently this summer
- urine culture pending, prelim result positive for ecoli
- CT with perinephric edema, nonspecific; possible etiologies recently passed stone vs pyelonephritis
- she is clinically improving and not having any urinary symptoms
- no indication to treat asymptomatic bacteruria at this time
#Elevated LFTs
- AST, ALT, Tbili elevated on admission --> downtrending today
- Alk phos chronically elevated, likely bone origin rather than biliary
- Repeat CMP tomorrow
#Constipation
- Will give standing daily miralax
#H/o diverticulosis
#H/o melanoma s/p excision 2005 from R leg
#Mild L1 compression deformity, likely chronic, seen on CT
Code status: full
Diet: Regular
VTE ppx: ambulation as tolerated, heparin bid
Dispo planning: anticipate discharge home TBD
Anticipated Discharge: 24 - 48 hours
Subjective/Interval History
-
Date of Service: February 02, 2024
No acute events overnight. She feels better than yesterday, and much better than when she was admitted. She had a headache overnight that resolved, and has no complaints this morning. Denies fevers, chills, lightheadedness, dizziness, chest pain,
shortness of breath, nausea, vomiting, abdominal pain, diarrhea. Has not had a bowel movement while at the hospital. Tolerating regular diet, PO hydration. Ambulating to bathroom with walker and supervision/help with IV pole. She feels back to her
baseline ambulatory status and does not feel like she needs the walker.
Objective Data
-
Labs:
Laboratory Results
02/02/24
06:57
WBC 11.5 H
Hgb 12.2
Hct 35.3 L
Plt Count 278
Sodium 144
Potassium 3.9
Chloride 115 H
Carbon Dioxide 17 L
BUN 47 H
Creatinine 1.9 H
Glucose 78
Calcium 11.3 H
Total Bilirubin 1.4 H
AST 33
ALT 52 H
Alkaline Phosphatase 226 H
Vital Signs:
Vital Signs
Temp Pulse Resp BP Pulse Ox
97.9 F 63 18 133/75 95
02/02/24 03:10 02/02/24 03:10 02/02/24 03:10 02/02/24 03:10 02/02/24 03:10
I&O
02/01/24 02/02/24 02/03/24
06:59 06:59 06:59
Intake Total 1800 / 1800 2820 / 2820 390 / 390
Balance 1800 / 1800 2820 / 2820 390 / 390
Review of Systems
-
History Source: Patient
All other systems: Reviewed and negative
Physical Exam
-
General: Well Developed, Well Nourished, No Apparent Distress, Comfortable and Conversant
HEENT: Normocephalic and Atraumatic
Respiratory: Clear to Auscultation and Non Labored Respirations
Cardiac: Regular Rhythm and S1/S2
GI: Soft, Nontender, Nondistended and Normal Bowel Sounds
Musculoskeletal: No Cyanosis and No Edema
Skin: Warm and Dry
Neuro: Awake, Alert, Oriented, AO x 3 and Nonfocal/Grossly Intact
Psych: Calm and Intact Judgement/Insight
[2024-02-02 08:33] VITALS: BP 153/86
[2024-02-02] MEDS: MIRALAX 17 GRAMS PO (09:40)
[2024-02-02 11:39] VITALS: BP 137/88
--- NOTE | 2024-02-02 11:45 | W.PN.NEPH.PH ---
Today's Communication / Plan
-
IVF
Assessment/Plan
-
IMP:
Febrile illness
perinephric edema Rt>left, recently passed stone as per history and can not r/o pyelo
Acute renal failure-no baseline
Acute on chronic Hypercalcemia
K stone
Transaminitis
mild hypoalbuminemia
Diverticulosis/diverticulitis Hx
Melanoma with removal from right leg 2005
Plan:
follow BMP
continue IVF, reduce rate
hyperCa likely from right lower pole parathyroid adenoma seen on 09/30/20 PTHscan, given elevated PTH level
will need repeat Parathyroid nuclear scan as outpatient and referral to surgery for PTX (Dr. Summers, [facility])
bowel regimen
-
-
Date of Service: February 02, 2024
CC / HPI / ROS
-
Chief Complaint:
IMER
History of Present Illness:
IMER/Cr better at 1.9
Calcium still high but improving to 11.3
BP stable
mild acidosis still
Review of Systems:
no CP/SOB
constipated
Labs
-
Labs:
WBC 11.5 10^3/uL (4.8-10.8) H 02/02/24 06:57
RBC 4.12 10^6/uL (4.20-5.40) L 02/02/24 06:57
Hgb 12.2 g/dL (12.0-16.0) 02/02/24 06:57
Hct 35.3 % (37.0-47.0) L 02/02/24 06:57
Plt Count 278 10^3/uL (130-400) 02/02/24 06:57
Sodium 144 mmol/L (135-145) 02/02/24 06:57
Potassium 3.9 mmol/L (3.5-5.1) 02/02/24 06:57
Chloride 115 mmol/L (98-107) H 02/02/24 06:57
Carbon Dioxide 17 mmol/L (22-30) L 02/02/24 06:57
BUN 47 mg/dl (7-17) H 02/02/24 06:57
Creatinine 1.9 mg/dL (0.6-1.0) H 02/02/24 06:57
eGFR 28.76 02/02/24 06:57
Glucose 78 mg/dl (70-99) 02/02/24 06:57
Calcium 11.3 mg/dl (8.4-10.2) H 02/02/24 06:57
Phosphorus Cancelled 01/31/24 16:01
Albumin 2.8 g/dl (3.5-5.0) L 02/02/24 06:57
Physical Exam
-
Vital Signs:
Vital Signs
Temp Pulse Resp BP Pulse Ox
98.8 F 76 18 137/88 97
02/02/24 11:39 02/02/24 11:39 02/02/24 11:39 02/02/24 11:39 02/02/24 11:39
Cardiovascular:: Regular rate and rhythm
Respiratory:: Bilateral: Coarse
Lung Excursion:: Normal
Abdomen:: Nontender and Soft
Bowel Sounds:: Normal
Extremity Edema:: None: Bilateral:
[2024-02-02] MEDS: TYLENOL 650 MG PO (13:59)
--- NOTE | 2024-02-02 14:24 | CM ---
Chart reviewed - pt seen by PT with no skilled needs identified for discharge. Plan is for Janki to stay with her daughter and son-in-law at discharge.
Plan: Discharge to home with no needs.
[2024-02-02 16:18] VITALS: BP 139/79
[2024-02-02] MEDS: STERILE WATER FOR INJECTION 10 ML IV (17:07)
[2024-02-02] MEDS: ROCEPHIN 1000 MG IV (17:07)
[2024-02-02 19:12] VITALS: BP 138/78
[2024-02-02 19:38] LABS: Hepatitis C Antibody Negative (Negative)
[2024-02-02 23:40] VITALS: BP 150/86
[2024-02-03] VITALS (8 sets, daily range): BP systolic 122–156; BP diastolic 77–91; PULSE 63
[2024-02-03] MEDS: ZOFRAN 4 MG IV ×2 (02:00→18:24)
[2024-02-03 07:47] LABS: Hematocrit 32.8 % (37.0-47.0); Hemoglobin 11.3 g/dL (12.0-16.0); Mean Corp Hgb Conc. 34.5 g/dL (33.0-37.0); Mean Corpuscular Hgb 29.5 pg (27.0-31.0); Mean Corpuscular Volume 85.6 fL (81.0-99.0); Mean Platelet Volume 11.2 fL (7.4-10.4); Platelet Count 318 10^3/uL (130-400); Red Blood Cell Count 3.83 10^6/uL (4.20-5.40); Red Cell Dist. Width 15.2 % (11.5-14.5); White Blood Cell Count 8.1 10^3/uL (4.8-10.8)
[2024-02-03 08:18] LABS: 24 Hour Urine Total Volume Random mL; Urine Collection Length Random hr; Urine Free Kappa Light Chains 362.48 mg/L (0.00-32.90); Urine Free Lambda Light Chains 65.93 mg/L (0.00-3.79)
[2024-02-03 08:20] LABS: ALT (SGPT) 65 U/L (0-35); AST (SGOT) 59 U/L (14-36); Albumin 2.5 g/dl (3.5-5.0); Alkaline Phosphatase 257 U/L (38-126); Blood Urea Nitrogen 35 mg/dl (7-17); Calcium 10.2 mg/dl (8.4-10.2); Carbon Dioxide 22 mmol/L (22-30); Chloride 113 mmol/L (98-107); Estimated Creatinine Clearance 35 ml/min; Glucose 96 mg/dl (70-99); Potassium 3.9 mmol/L (3.5-5.1); Sodium 143 mmol/L (135-145); Total Bilirubin 0.8 mg/dl (0.2-1.3); Total Protein 5.1 g/dl (6.3-8.2)
[2024-02-03] MEDS: HEPARIN 5000 UNITS SC ×2 (08:55→19:54)
[2024-02-03] MEDS: MIRALAX 17 GRAMS PO (08:55)
[2024-02-03 09:03] LABS: % Basophils 0.6 % (0-2); % Eosinophils 3.8 % (0-6); % Immature Granulocytes 3.2 % (0-0.5); % Monocytes 12.4 % (1.7-9.3); Absolute Basophils 0.1 10^3/uL (0-0.2); Absolute Eosinophils 0.3 10^3/uL (0-0.7); Absolute Immature Granulocytes 0.3 10^3/uL (0-0.05); Absolute Lymphocytes 1.3 10^3/uL (1.2-3.4); Absolute Neutrophils 5.2 10^3/uL (1.4-6.5); Nucleated Red Blood Cells % 0 %
--- NOTE | 2024-02-03 09:16 | W.PN.HOSP.TC ---
Today's Communication/Plan
-
ID consult
Assessment / Plan
Assessment / Plan
68yo F with PMH kidney stones, tobacco use who presented to ED 01/30 for poor oral intake. 5 days prior to admission, she felt very sick, weak, and was shaking. She also had some vomiting, which last occurred 01/28. She began feeling a little better
but had poor oral intake for several more days.
#Hypercalcemia
#Primary hyperparathyroidism
#Parathyroid adenoma
- Per patient home supplements include '50,000 of vitamin D' every 1-2 weeks (which was her mother's prescription), magnesium, iron, b12
- Corrected Ca on admission 14.3 --> 11.4 today (Ca 10.2, albumin 2.5 on CMP)
- PTH 235 on admission and patient with known history of parathyroid adenoma
- Elevated alk phos likely bone origin
- plasma and urinary protein electrophoresis pending
- Discontinue calcium supplementation
- S/p aredia x1. Nephrology following, appreciate recs.
- Will need follow up outpatient regarding surgery for adenectomy
#Tobacco use
- xray no focal masses
- Would benefit from outpatient low dose CT for screening if not done before
#Leukocytosis- resolved
- Unclear etiology, possibly related to recent illness prior to admission
- WBC 11.4 on admission --> 8.1 today
- Febrile to 101.6 on admission (@1212 01/30), has been afebrile since.
- Tcurrent 97.9 this AM @0757 02/02
- Continue to follow fever trend, CBC tomorrow
#IMER vs CKD
- Cr on admission 3.2 --> 1.5 today, unknown baseline
- Cr improving with hydration, may have prerenal component
- Continue IV fluids and trend Cr daily
- Avoid nephrotoxic medications and renally dose if appropriate
#UTI secondary to E Coli ESBL
#concern for pyelonephritis
#h/o renal stones- most recently this summer
- Urine culture positive for ecoli ESBL
- CT with perinephric edema, nonspecific; possible etiologies recently passed stone vs pyelonephritis
- She is clinically improving and not having any urinary symptoms at this time
- Given urine culture and CT findings concerning for pyelonephritis, will consult ID for antibiotic recommendations
#Elevated LFTs
- AST, ALT, Tbili elevated on admission --> Tbili downtrended and wnl today; AST ALT overall stable
- Alk phos chronically elevated, likely bone origin rather than biliary
- Repeat CMP tomorrow
- Hepatitis panel pending
#Constipation
- Will give standing daily miralax
#H/o diverticulosis
#H/o melanoma s/p excision 2005 from R leg
#Mild L1 compression deformity, likely chronic, seen on CT
Code status: full
Diet: Regular
VTE ppx: ambulation as tolerated, heparin bid
Dispo planning: anticipate discharge home when able
Anticipated Discharge: Within 24 hours
Subjective/Interval History
-
Date of Service: February 03, 2024
No acute events overnight. Feels well with no complaints. Denies lightheadedness, dizziness, chest pain, shortness of breath, nausea, vomiting, diarrhea, constipation. She denies dysuria, urinary frequency, hematuria. Last bowel movement was
yesterday, no black/bloody stool. She is ambulating without assistance and tolerating PO diet.
Objective Data
-
Labs:
Laboratory Results
02/03/24
06:38
WBC 8.1
Hgb 11.3 L
Hct 32.8 L
Plt Count 318
Sodium 143
Potassium 3.9
Chloride 113 H
Carbon Dioxide 22
BUN 35 H
Creatinine 1.5 H
Glucose 96
Calcium 10.2
Total Bilirubin 0.8
AST 59 H
ALT 65 H
Alkaline Phosphatase 257 H
Microbiology Results - Entire Visit
01/31/24 13:11 Urine Urine Culture - Final
Escherichia coli - ESBL
01/31/24 15:53 Blood/Venous Blood Culture - Preliminary
No Growth in 48 hours- Final report to follow
01/31/24 13:11 Nasal Swab Influenza Types A & B (JENNYFER) - Final
Negative for Influenza A & B, NAAT
Negative results must be combined with clinical observations
and patient history.
Nucleic Acid Amplification test (NAAT)performed on the
[employer] platform.
Hematology and Coagulation - Last 24 hours
02/03/24 Range/Units
06:38
WBC 8.1 (4.8-10.8) 10^3/uL
RBC 3.83 L (4.20-5.40) 10^6/uL
Hgb 11.3 L (12.0-16.0) g/dL
Hct 32.8 L (37.0-47.0) %
MCV 85.6 (81.0-99.0) fL
MCH 29.5 (27.0-31.0) pg
MCHC 34.5 (33.0-37.0) g/dL
RDW 15.2 H (11.5-14.5) %
Plt Count 318 (130-400) 10^3/uL
MPV 11.2 H (7.4-10.4) fL
Abs Immat Gran (auto) 0.3 H (0-0.05) 10^3/uL
Absolute Neuts (auto) 5.2 (1.4-6.5) 10^3/uL
Absolute Lymphs (auto) 1.3 (1.2-3.4) 10^3/uL
Absolute Monos (auto) 1.0 H (0.1-0.6) 10^3/uL
Absolute Eos (auto) 0.3 (0-0.7) 10^3/uL
Absolute Basos (auto) 0.1 (0-0.2) 10^3/uL
CBC Comment
Immature Gran % 3.2 H (0-0.5) %
Neutrophils % 64.0 (42.2-75.2) %
Lymphocytes % 16.0 L (20.5-51.1) %
Monocytes % 12.4 H (1.7-9.3) %
Eosinophils % 3.8 (0-6) %
Basophils % 0.6 (0-2) %
Nucleated RBC % 0 %
Blood Gas and Chemistry - Last 24 hours
02/03/24 Range/Units
06:38
Sodium 143 (135-145) mmol/L
Potassium 3.9 (3.5-5.1) mmol/L
Chloride 113 H (98-107) mmol/L
Carbon Dioxide 22 (22-30) mmol/L
BUN 35 H (7-17) mg/dl
Creatinine 1.5 H (0.6-1.0) mg/dL
Estimated Creat Clear 35 ml/min
eGFR 38.20
Glucose 96 (70-99) mg/dl
Calcium 10.2 (8.4-10.2) mg/dl
Total Bilirubin 0.8 (0.2-1.3) mg/dl
AST 59 H (14-36) U/L
ALT 65 H (0-35) U/L
Alkaline Phosphatase 257 H (38-126) U/L
Total Protein 5.1 L (6.3-8.2) g/dl
Albumin 2.5 L (3.5-5.0) g/dl
Other lab results - Last 24 hours
01/31/24 02/01/24 02/03/24 Range/Units
06:37 06:38
Ur Collection Duration Random hr
Ur 24 Hour Volume Random mL
Urine Total Protein See note (<=150) mg/d
U Free Mcgrew Light Ch 362.48 H (0.00-32.90) mg/L
U Free Mcgrew Excretion See note mg/d
U Free Lambda Light Ch 65.93 H (0.00-3.79) mg/L
Free Lambda Excret 24 See note mg/d
Urine CASS Interpret See note
Hepatitis A IgM Ab Pending
Hepatitis A Ab Total Pending
Hep Bs Antigen Pending
Hepatitis C Antibody Negative (Negative)
Microbiology
01/31/24 13:11 Urine Culture - Final
Urine Escherichia coli - ESBL
01/31/24 15:53 Blood Culture - Preliminary
Blood/Venous No Growth in 48 hours- Final report to follow
Vital Signs:
Vital Signs
Temp Pulse Resp BP Pulse Ox
97.9 F 69 18 148/79 98
02/03/24 07:57 02/03/24 07:57 02/03/24 07:57 02/03/24 07:57 02/03/24 07:57
I&O
02/02/24 02/03/24 02/04/24
06:59 06:59 06:59
Intake Total 2820 / 2820 3500 / 3500 300 / 300
Balance 2820 / 2820 3500 / 3500 300 / 300
Review of Systems
-
History Source: Patient
All other systems: Reviewed and negative
Physical Exam
-
General: Well Developed, Well Nourished, No Apparent Distress, Comfortable and Conversant
HEENT: Normocephalic and Atraumatic
Respiratory: Clear to Auscultation and Non Labored Respirations
Cardiac: Regular Rhythm and S1/S2
GI: Soft, Nontender, Nondistended and Normal Bowel Sounds
Musculoskeletal: No Cyanosis, No Edema and Normal Gait & Station (ambulated halls with patient this morning, she did well with and without rolling walker, she did not require my assistance, appeared steady on her feet)
Skin: Warm and Dry
Neuro: Awake, Alert, Oriented, AO x 3 and Nonfocal/Grossly Intact
Psych: Calm and Intact Judgement/Insight
Data Reviewed
-
CT Scan: Image personally visualized and interpreted, Report Reviewed by me and Discussed with Physician
Labs: Labs Reviewed by me and Discussed with Physician
[2024-02-03 10:06] LABS: Hepatitis B Surface Antigen Negative (Negative)
[2024-02-03 11:01] LABS: Hepatitis A Antibody, Total Negative (Negative)
[2024-02-03] MEDS: NSS 1000 IV ×2 (11:03→19:57)
--- NOTE | 2024-02-03 12:29 | PTCARENOTE ---
Report given to receiving RN on . Pt moving to private room for ESBL in urine
--- NOTE | 2024-02-03 12:35 | CON.ID ---
Consultation
-
Date/Time Consultation Requested: 02/03/24 12:36
Date/Time Consultation Performed: 02/03/24 12:36
Requesting Provider: Dr Cass Fajardo
Performing Provider: Dr Hatfield
Reason for Consultation: possible uti
Chief Complaint / Past History
Chief Complaint
nausea, vomiting, fever
History of Present Illness
Ms Sierra is a 68 year old female with history of renal stones who presented here 01/30 for fevers, rigors, nausea, vomiting for 4 days. Unable to tolerate orals beyond sips of water and minimal voiding for the last four days. Also fatigue and
nonproductive cough. Denies headache, sore throat, rhinorrhea, shortness of breath, abdominal pain, flank pain, diarrhea, dysuria and rash. No sick contacts.
Since arrival here tmax 101.6, bp stable, wbc intiailly 12.8 now 8.1, hgb 11.3, plt 318, L shift present on arrival now resolved, cr initially 3.2 from baseline of 0.9, calcium initally 12.9 now 10.2, t bili initially 2.0 now 0.8, ast 59, alt 65,
alk phos increased at 257, UA 26-30 wbc/hpf and moderate bacteria, CASS and SPEP pending, CXR no acute CP process, 01/30 CT a/p without contrast: midl bilateral perinephric edema R>L. urine culture 100K ESBL E coli. Known right lower parathyoid
adenoma reported 09/30/20 and she will be referred for parathyroid nuclear scan outpatient, currently on ceftriaxone, ID is consulted for assistance with management.
Past History
Additional Past Medical History:
GERD
diverticulosis/diverticulitis
Additional Past Surgical History:
Melanoma with removal from right leg 2005
Cholecystectomy
Ectopic 1993
Tonsillectomy
[place] teeth extraction
Allergy History:
codeine [Codeine] Allergy (Verified 01/31/24 12:14)
sweating, lightheaded, passed out
Opioids - Morphine Analogues Allergy (Verified 01/31/24 12:14)
severe headachaes, passed out
Medications Reviewed: Yes
Social History
Tobacco: Smoker
Alcohol: Occasional
Drug: None
Family History
Family History: Not Pertinent
Review of Systems
Review of Systems
General: Fever and Chills
All systems: All other systems were reviewed and were negative
Vital Signs
Temp Pulse Resp BP Pulse Ox
98.1 F 57 18 140/77 97
02/03/24 11:34 02/03/24 11:34 02/03/24 11:34 02/03/24 11:34 02/03/24 11:34
Physical Exam
Physical Exam
Constitutional: No Acute Distress
Cardiovascular: Regular Rate and S1/S2; Negative Murmur or Rub
Pulmonary: Clear and Symmetric; Negative Wheezes, Rales or Rhonchi
Gastrointestinal: Soft, Non Tender, Non Distended and Normal Bowel Sounds
Skin: Warm and Dry; Negative Rash or Jaundice
Lab / Diagnostic Study Results
02/03/24 06:38
02/03/24 06:38
Abs Immat Gran (auto) 0.3 10^3/uL (0-0.05) H 02/03/24 06:38
Absolute Neuts (auto) 5.2 10^3/uL (1.4-6.5) 02/03/24 06:38
Absolute Lymphs (auto) 1.3 10^3/uL (1.2-3.4) 02/03/24 06:38
Absolute Monos (auto) 1.0 10^3/uL (0.1-0.6) H 02/03/24 06:38
Absolute Basos (auto) 0.1 10^3/uL (0-0.2) 02/03/24 06:38
Immature Gran % 3.2 % (0-0.5) H 02/03/24 06:38
Neutrophils % 64.0 % (42.2-75.2) 02/03/24 06:38
Lymphocytes % 16.0 % (20.5-51.1) L 02/03/24 06:38
Monocytes % 12.4 % (1.7-9.3) H 02/03/24 06:38
Eosinophils % 3.8 % (0-6) 02/03/24 06:38
Basophils % 0.6 % (0-2) 02/03/24 06:38
Ur Squamous Epith Cells 6-10 /LPF (Few) 01/31/24 13:11
Microbiology Results
Micro:
01/31/24 13:11 Urine Culture - Final
Urine Escherichia coli - ESBL
01/31/24 15:53 Blood Culture - Preliminary
Blood/Venous No Growth in 48 hours- Final report to follow
01/31/24 13:11 Influenza Types A & B (JENNYFER) - Final
Nasal Swab Negative for Influenza A & B, NAAT
Negative results must be combined with clinical observations
and patient history.
Nucleic Acid Amplification test (NAAT)performed on the
[employer] platform.
Urine Culture Final 02/03/24-0844
CC: Greater than 100,000 CFU/ML Escherichia coli - ESBL
Isolation Precautions [place] [id number] on 02/03/24 at 0843 by [place] [id number]
Resistance due to extended spectrum beta lactamase.
Decreased activity may occur with penicillins,
penicillin/inhibitor combinations, cephalosporins, and
monobactams.
Organism 1 Escherichia coli - ESBL
1. Escherichia coli - ESBL
M.I.C. RX
--------- ---
Amoxicillin/Potas. Clavulanate 16/8 I
Ampicillin >16 R
Ampicillin/Sulbactam 16/8 I
Aztreonam >16 R
Cefazolin >16 R
Cefepime >16 R
Ceftazidime >16 R
Ceftriaxone >2 R
Ertapenem <=0.5 S
Ciprofloxacin >2 R
Gentamicin >8 R
Meropenem <=1 S
Nitrofurantoin-Urine Only <=32 S
Piperacillin/Tazobactam 16 S
Tetracycline >8 R
Tobramycin >8 R
Trimethoprim/Sulfamethoxazole <=2/38 S
Assessment / Plan
Pyelonephritis due to ESBL E coli
Probable passed renal stone
IMER - improving
H/o stones
- Do not recommend blood cultures for UTIs unless patient is in shock, note that single blood culture is about 70% sensitive for bacteremia and these are typically sent in sets of two. No need for further blood cultures at this time
- 100K ESBL E coli from the urine - consistent with UTI, CT scan suggestive of pyelonephritis; patient reports about 1 day of flank pain, then with urinary urgency, vomiting, fevers and chills
- given IMER start ertapenem for now day 1 of rx, as renal function improves plan eventual switch to bactrim to complete a 7 day course; nitrofurnation not an option with upper urinary tract involvement
- contact precautions
- follow clinically
Care Review
Plan reviewed with: Physician (Dr Torre - symptoms)
--- NOTE | 2024-02-03 13:47 | W.PN.UPDATE ---
Update Note
Progress Note Update
I personally performed a history and physical exam of the patient and discussed management with the resident. I reviewed the resident's note and agree with the documented findings and plan of care HPI/CC except for change in MY documentation.
68-year-old female with fever and chills. She also had nausea and vomiting
CT abdomen and pelvis without contrast-mild bilateral renal and perinephric edema right greater than left. Findings nonspecific with differential including recently passed stone or ascending UTI/pyelonephritis. Mild L1 compression deformity
No flank tenderness
# UTI- ESBL E. coli
Fevers on admission
Infectious disease consultation appreciated
Invanz started
Plan is to discharge on Bactrim when renal function improves.
# Acute renal failure likely secondary to prerenal causes also use of NSAIDs
No previous creatinine available since 2014
Hold Naprosyn
Avoid nephrotoxic medicines
Creatinine improved to 1.5
# Hypercalcemia likely secondary to primary hyperparathyroidism
EKG with no changes
Status post pamidronate
Avoid calcium or vitamin D supplements
Elevated intact PTH-likely primary hyperparathyroidism
Patient has a history of parathyroid scan with right lower pole parathyroid adenoma-September 2020
SPEP and UPEP ordered
Follow with hydration-calcium better
CXR-unremarkable
Needs parathyroidectomy as outpatient-patient aware and will follow up may need updated scan
# Transaminitis-no clear cause. Liver and gallbladder normal on unenhanced CT. She is status post cholecystectomy. Hepatitis panel ordered. Needs follow-up with GI as outpatient postdischarge. Repeat labs tomorrow
# Diverticulosis
# History of nephrolithiasis
# GERD
# Hypoalbuminemia
# History of melanoma surgery right leg 2005
# Multilevel discogenic DJD thoracolumbar spine
# Smoker-cessation counseling
# DVT prophylaxis-subcutaneous heparin
# Full code
D/W ID
[2024-02-03] MEDS: INVANZ 60 MG IV (14:28)
--- NOTE | 2024-02-03 14:50 | W.PN.NEPH.PH ---
Today's Communication / Plan
-
IVF, follow labs
Assessment/Plan
-
IMP:
Febrile illness
perinephric edema Rt>left, recently passed stone as per history and can not r/o pyelo
Acute renal failure-no baseline
Acute on chronic Hypercalcemia
K stone
Transaminitis
mild hypoalbuminemia
Diverticulosis/diverticulitis Hx
Melanoma with removal from right leg 2005
Plan:
IMER-improving cr 1.5
hypercalcemia felt from primary hyperparathyroidism
she will return to [place]
will need repeat Parathyroid nuclear scan as outpatient and referral to surgery for PTX (Dr. Summers, [facility])
lower pole parathyroid adenoma seen on 09/30/20 PTHscan
another day of IVF still, tomás uncorrected 10.2
abx per ID for ESBL UTI
labs in am
-
-
Date of Service: February 03, 2024
CC / HPI / ROS
-
Chief Complaint:
IMER
History of Present Illness:
IMER/Cr better at 1.5
Calcium still high but improving to 10.2
BP stable
acidosis is better
Review of Systems:
no CP/SOB
no n/v
Labs
-
Labs:
WBC 8.1 10^3/uL (4.8-10.8) 02/03/24 06:38
RBC 3.83 10^6/uL (4.20-5.40) L 02/03/24 06:38
Hgb 11.3 g/dL (12.0-16.0) L 02/03/24 06:38
Hct 32.8 % (37.0-47.0) L 02/03/24 06:38
Plt Count 318 10^3/uL (130-400) 02/03/24 06:38
Sodium 143 mmol/L (135-145) 02/03/24 06:38
Potassium 3.9 mmol/L (3.5-5.1) 02/03/24 06:38
Chloride 113 mmol/L (98-107) H 02/03/24 06:38
Carbon Dioxide 22 mmol/L (22-30) 02/03/24 06:38
BUN 35 mg/dl (7-17) H 02/03/24 06:38
Creatinine 1.5 mg/dL (0.6-1.0) H 02/03/24 06:38
eGFR 38.20 02/03/24 06:38
Glucose 96 mg/dl (70-99) 02/03/24 06:38
Calcium 10.2 mg/dl (8.4-10.2) 02/03/24 06:38
Phosphorus Cancelled 01/31/24 16:01
Albumin 2.5 g/dl (3.5-5.0) L 02/03/24 06:38
Physical Exam
-
Vital Signs:
Vital Signs
Temp Pulse Resp BP Pulse Ox
98.5 F 70 16 150/87 98
02/03/24 12:45 02/03/24 12:45 02/03/24 12:45 02/03/24 12:45 02/03/24 12:45
Cardiovascular:: Regular rate and rhythm
Respiratory:: Bilateral: CTA
Lung Excursion:: Normal
Abdomen:: Nontender and Soft
Extremity Edema:: None: Bilateral:
Batista Catheter: No
[2024-02-03] MEDS: BENADRYL 25 MG IV (19:53)
--- NOTE | 2024-02-03 23:05 | PTCARENOTE ---
During change of shift report pt. rang call lara to report a new raised, red,diffuse, itchy rash on her back. She stated that she wasn't sure exactly when it appeared but that she knew she didn't have it earlier in the day. She denied any other
symptoms besides nausea, which was not a new symptom for her. Provider and ID notified. Pt. then had an episode of vomiting. Provider notified and benedryl administered per order. Pt. is resting comfortably at this time, plan of care continues.
[2024-02-04 04:03] VITALS: BP 157/87
[2024-02-04 06:00] VITALS: BMI 28.4
[2024-02-04 07:50] VITALS: BP 169/89
--- NOTE | 2024-02-04 08:49 | W.PN.HOSP.TC ---
Addendum entered and electronically signed by Juan David Vora MD 02/04/24 15:41:
I saw and evaluated the patient. I reviewed the resident�s note and agree with findings and plan as documented in the resident�s note.
Patient resting comfortably in bed. Have some ongoing nausea overnight. Poor appetite
No abdominal pain/fever
1. Primary hyperparathyroidism/hypercalcemia -admission calcium of 14.3. Patient was also OTC vitamin D which patient is advised to stop taking. PTH was elevated to 235. Nephrology involved in care and patient goal dose of Pamidronic acid.
Patient is planning to follow-up with endocrinology at [facility] and Dr Jonathan Summers for parathyroidectomy
2. ESBL Ecoli Pyelonephritis/UTI -urine culture report reviewed. ID helping with antibiotics. Patient was changed to Invanz based on sensitivity although developed possible drug rash, antibiotic has been changed to Bactrim therapy
3. Nausea/vomiting -patient continues to have persistent nausea at this point. Getting as needed Zofran poor oral intake. Trying IV Reglan.
4. Acute transaminitis - minimally elevated. Patient have history of cholecystectomy. No reported biliary abnormalities on CT scan. Hep negative,
5. Presumed IMER -renal function normalizing and creatinine 1.2 today. Baseline unknown. Cannot rule out underlying CKD component.
Original Note:
Today's Communication/Plan
-
change antibiotics per ID
Assessment / Plan
Assessment / Plan
68yo F with PMH kidney stones, tobacco use who presented to ED 01/30 for poor oral intake. 5 days prior to admission, she felt very sick, weak, and was shaking. She also had some vomiting, which last occurred 01/28. She began feeling a little better
but had poor oral intake for several more days.
#Hypercalcemia
#Primary hyperparathyroidism
#Parathyroid adenoma
- Per patient home supplements include '50,000 of vitamin D' every 1-2 weeks (which was her mother's prescription), magnesium, iron, b12
- Corrected Ca on admission 14.3 --> 11.4 (Ca 10.2, albumin 2.5 on CMP) 02/02
- Ca level today 9.3, wnl
- PTH 235 on admission and patient with known history of parathyroid adenoma
- Elevated alk phos likely bone origin
- Discontinue calcium and vitamin D supplementation
- S/p aredia x1. Nephrology following, appreciate recs.
- Will need follow up outpatient regarding surgery for parathyroidectomy
#Tobacco use
- xray no focal masses
- Would benefit from outpatient low dose CT for screening if not done before
#UTI vs pyelonephritis secondary to E Coli ESBL
#Leukocytosis
- WBC 11.4 on admission --> 8.1 02/02
- Febrile to 101.6 on admission (@1212 01/30), has been afebrile since.
- Tcurrent 97.9 this AM @0750 02/03
- CT with perinephric edema, nonspecific; possible etiologies recently passed stone vs pyelonephritis
- Urine culture positive for ecoli ESBL --> contact precautions
- ID consulted, appreciate recs. S/p ertapenem x1 day. Reviewed with ID, will switch to bactrim BID x6 days given improvement in Cr.
- Continue to follow fever trend, CBC pending
#IMER vs CKD
- Cr on admission 3.2 --> 1.2 today, unknown baseline
- Cr improving with hydration, likely prerenal due to hypovolemia prior to admission
- Continue IV fluids and trend Cr daily
- Avoid nephrotoxic medications and renally dose if appropriate
#h/o renal stones- most recently this summer
#Abnormal urinary protein electrophoresis
- Urinary free kappa light chain elevated 362.48 mg/L; urinary free lambda light chain elevated 65.93 mg/L. Inconclusive in evaluation of multiple myeloma which requires 24 hour urine collection or serum light chain analysis. Serum protein
electrophoresis pending.
#Elevated LFTs
- AST, ALT, Tbili elevated on admission --> Tbili downtrended, wnl; AST ALT overall stable
- Alk phos chronically elevated, likely bone origin rather than biliary
- Repeat CMP tomorrow
- Hepatitis panel negative
#Constipation
- Will give standing daily miralax
#Anemia
- Hgb 12.1 on admission --> 11.3 today
- Hgb overall stable
- No signs of acute blood loss or bruising
- Recommend repeat CBC 1 week after discharge
- Consider checking iron studies, b12 inpatient vs outpatient
#Pruritic rash on back
- Possible etiologies include reaction to ertapenem vs contact dermatitis secondary to changes in hygiene routine and products while in hospital
- No other signs of systemic allergic reaction
- Can use benadryl prn for comfort
- Continue to monitor clinically
- Reassess if worsening symptoms
#Nausea
- Unknown etiology, possibly related to pyelonephritis vs GI cause
- Tolerating PO diet, 1 episode of emesis
- Will try reglan prn for symptoms and continue IV hydration
- Start protonix BID
#H/o diverticulosis
#H/o melanoma s/p excision 2006 from R leg
#Mild L1 compression deformity, likely chronic, seen on CT
Code status: full
Diet: Regular
VTE ppx: ambulation as tolerated, heparin bid
Dispo planning: anticipate discharge home today vs tomorrow
Anticipated Discharge: Within 24 hours
Subjective/Interval History
-
Date of Service: February 04, 2024
Overnight she had 1 episode of emesis and nausea. She reports an itchy rash on her back after receiving antibiotics yesterday. She denies headache, lightheadedness, dizziness, chest pain, shortness of breath, diarrhea, constipation, abdominal pain,
back pain. She reports decreased appetite. Ambulating in room as tolerated.
Objective Data
-
Vital Signs:
Vital Signs
Temp Pulse Resp BP Pulse Ox
98.5 F 66 16 157/87 94
02/04/24 04:03 02/04/24 04:03 02/04/24 04:03 02/04/24 04:03 02/04/24 04:03
I&O
02/03/24 02/04/24 02/05/24
06:59 06:59 06:59
Intake Total 3500 / 3500 1999
Balance 3500 / 3500 1999
Review of Systems
-
History Source: Patient
All other systems: Reviewed and negative
Physical Exam
-
General: Well Developed, Well Nourished, No Apparent Distress, Comfortable and Conversant
HEENT: Normocephalic and Atraumatic
Respiratory: Clear to Auscultation and Non Labored Respirations
Cardiac: Regular Rhythm and S1/S2
GI: Soft, Nontender, Nondistended and Normal Bowel Sounds
Genito-urinary: No Costovertebral Tender
Musculoskeletal: No Cyanosis and No Edema
Skin: Warm and Dry
Neuro: Awake, Alert, Oriented, AO x 3 and Nonfocal/Grossly Intact
Psych: Calm and Intact Judgement/Insight
Data Reviewed
-
CT Scan: Image personally visualized and interpreted, Report Reviewed by me and Discussed with Physician
Labs: Labs Reviewed by me and Discussed with Physician
[2024-02-04] MEDS: MIRALAX 17 GRAMS PO (08:50)
[2024-02-04] MEDS: HEPARIN 5000 UNITS SC (08:52)
[2024-02-04] MEDS: ZOFRAN 4 MG IV (09:09)
[2024-02-04 10:27] LABS: Blood Urea Nitrogen 23 mg/dl (7-17); Calcium 9.3 mg/dl (8.4-10.2); Carbon Dioxide 21 mmol/L (22-30); Chloride 111 mmol/L (98-107); Estimated Creatinine Clearance 49 ml/min; Glucose 89 mg/dl (70-99); Potassium 3.7 mmol/L (3.5-5.1); Sodium 142 mmol/L (135-145); eGFR 49.92
[2024-02-04] MEDS: NSS 1000 IV (10:33)
[2024-02-04 11:25] VITALS: BP 159/84
[2024-02-04 12:37] LABS: Hemoglobin 11.3 g/dL (12.0-16.0); Mean Corp Hgb Conc. 34.2 g/dL (33.0-37.0); Mean Corpuscular Hgb 29.7 pg (27.0-31.0); Mean Corpuscular Volume 86.6 fL (81.0-99.0); Platelet Count 371 10^3/uL (130-400); Red Blood Cell Count 3.81 10^6/uL (4.20-5.40); Red Cell Dist. Width 15.1 % (11.5-14.5); White Blood Cell Count 7.7 10^3/uL (4.8-10.8)
--- NOTE | 2024-02-04 15:12 | W.PN.NEPH.PH ---
Today's Communication / Plan
-
d/c IVF
follow labs on Bactrim
Assessment/Plan
-
IMP:
Febrile illness
perinephric edema Rt>left, recently passed stone as per history and can not r/o pyelo
Acute renal failure-no baseline
Acute on chronic Hypercalcemia
K stone
Transaminitis
mild hypoalbuminemia
Diverticulosis/diverticulitis Hx
Melanoma with removal from right leg 2005
Plan:
IMER-improving cr 1.5
hypercalcemia felt from primary hyperparathyroidism
she will return to [place]
will need repeat Parathyroid nuclear scan as outpatient and referral to surgery for PTX (Dr. Summers, [facility])
lower pole parathyroid adenoma seen on 09/30/20 PTHscan
d/c IVF tomás better today, encouraged to increase fluid intake
monitor met acidosis
abx per ID for ESBL UTI, changed to Bactrim since allergic to Ertapenem
labs in am
-
-
Date of Service: February 04, 2024
CC / HPI / ROS
-
Chief Complaint:
IMER
History of Present Illness:
IMER/Cr better at 1.2
Calcium still high but improving to 9.3
BP stable
acidosis stable bicarb 21
Review of Systems:
no CP/SOB
no n/v
Labs
-
Labs:
WBC 7.7 10^3/uL (4.8-10.8) 02/04/24 12:22
RBC 3.81 10^6/uL (4.20-5.40) L 02/04/24 12:22
Hgb 11.3 g/dL (12.0-16.0) L 02/04/24 12:22
Hct 33.0 % (37.0-47.0) L 02/04/24 12:22
Plt Count 371 10^3/uL (130-400) 02/04/24 12:22
Sodium 142 mmol/L (135-145) 02/04/24 09:42
Potassium 3.7 mmol/L (3.5-5.1) 02/04/24 09:42
Chloride 111 mmol/L (98-107) H 02/04/24 09:42
Carbon Dioxide 21 mmol/L (22-30) L 02/04/24 09:42
BUN 23 mg/dl (7-17) H 02/04/24 09:42
Creatinine 1.2 mg/dL (0.6-1.0) H 02/04/24 09:42
eGFR 49.92 02/04/24 09:42
Glucose 89 mg/dl (70-99) 02/04/24 09:42
Calcium 9.3 mg/dl (8.4-10.2) 02/04/24 09:42
Phosphorus Cancelled 01/31/24 16:01
Albumin 2.5 g/dl (3.5-5.0) L 02/03/24 06:38
Physical Exam
-
Vital Signs:
Vital Signs
Temp Pulse Resp BP Pulse Ox
98.5 F 64 18 159/84 97
02/04/24 11:25 02/04/24 11:25 02/04/24 11:25 02/04/24 11:25 02/04/24 11:25
Cardiovascular:: Regular rate and rhythm
Respiratory:: Bilateral: CTA
Lung Excursion:: Normal
Abdomen:: Nontender and Soft
Extremity Edema:: None: Bilateral:
Batista Catheter: No
Other Findings::
mild papular rash on the back
[2024-02-04 15:26] VITALS: BP 163/85
--- NOTE | 2024-02-04 16:46 | W.PN.ID1 ---
Date of Service
Date of Service: February 04, 2024
Today's Communication
7 day course of bactrim
Assessment / Plan
Pyelonephritis due to ESBL E coli
Probable passed renal stone
IMER - improving
H/o stones
- Do not recommend blood cultures for UTIs unless patient is in shock, note that single blood culture is about 70% sensitive for bacteremia and these are typically sent in sets of two. No need for further blood cultures at this time
- 100K ESBL E coli from the urine - consistent with UTI, CT scan suggestive of pyelonephritis; patient reports about 1 day of flank pain, then with urinary urgency, vomiting, fevers and chills
- switched to bactrim at my recommendation - 7 day course, hydrate while on bactrim
- contact precautions
- follow clinically
Folliculitis
- let patient shower, should be self limited; not a drug rash
Chief Complaint
-: UTI
Subjective / Review of Systems
afebrile
bp stable
folliculitis of the back not drug rash
hasnt showered in days
Vital Signs / Physical Exam
Vital Signs
Vital Signs
Temp Pulse Resp BP Pulse Ox
98.5 F 61 18 163/85 97
02/04/24 15:26 02/04/24 15:26 02/04/24 15:26 02/04/24 15:26 02/04/24 15:26
Physical Exam
Constitutional: No Acute Distress
Cardiovascular: Regular Rate and S1/S2; Negative Murmur or Rub
Pulmonary: Clear and Symmetric; Negative Wheezes or Rales
Gastrointestinal: Soft, Non Tender, Non Distended and Normal Bowel Sounds
Skin: Warm, Dry and Rash (folliculitis of the back - tiny vesicles in several locations); Negative Jaundice
Objective Data
Lab Data
Lab Results
02/04/24 12:22
02/04/24 09:42
Estimated Creat Clear 49 ml/min 02/04/24 09:42
Total Bilirubin 0.8 mg/dl (0.2-1.3) 02/03/24 06:38
AST 59 U/L (14-36) H 02/03/24 06:38
ALT 65 U/L (0-35) H 02/03/24 06:38
Alkaline Phosphatase 257 U/L (38-126) H 02/03/24 06:38
Most recent labs reviewed.
Micro Results:
01/31/24 15:53 Blood Culture - Preliminary
Blood/Venous No Growth in 4 days- Final report to follow
01/31/24 13:11 Urine Culture - Final
Urine Escherichia coli - ESBL
01/31/24 13:11 Influenza Types A & B (JENNYFER) - Final
Nasal Swab Negative for Influenza A & B, NAAT
Negative results must be combined with clinical observations
and patient history.
Nucleic Acid Amplification test (NAAT)performed on the
[employer] platform.
Care Review
Plan reviewed with: Physician (Dr Leatha riggs, formerly [facility])
[2024-02-04] MEDS: BACTRIM DS 800 MG/160 MG 1 TABLET PO (18:00)
[2024-02-04 19:47] VITALS: BP 149/88
[2024-02-04] MEDS: HEPARIN SC ×2 (20:55→20:56)
[2024-02-04] MEDS: PROTONIX PO ×2 (20:55→21:05)
[2024-02-04 23:37] VITALS: BP 144/82
[2024-02-05 03:24] VITALS: BP 146/77
[2024-02-05 06:00] VITALS: BMI 27.6
[2024-02-05] MEDS: REGLAN IV (07:09)
[2024-02-05 07:50] VITALS: BP 143/80
[2024-02-05] MEDS: MIRALAX 17 GRAMS PO (07:50)
[2024-02-05] MEDS: BACTRIM DS 800 MG/160 MG 1 TABLET PO (07:50)
[2024-02-05] MEDS: PROTONIX 40 MG PO (07:50)
[2024-02-05] MEDS: REGLAN 5 MG IV (07:51)
[2024-02-05] MEDS: HEPARIN SC (07:54)
[2024-02-05 09:03] LABS: Hematocrit 34.1 % (37.0-47.0); Hemoglobin 11.6 g/dL (12.0-16.0); Mean Corpuscular Hgb 28.4 pg (27.0-31.0); Mean Corpuscular Volume 83.6 fL (81.0-99.0); Mean Platelet Volume 9.9 fL (7.4-10.4); Platelet Count 467 10^3/uL (130-400); Red Blood Cell Count 4.08 10^6/uL (4.20-5.40); Red Cell Dist. Width 14.7 % (11.5-14.5); White Blood Cell Count 8.9 10^3/uL (4.8-10.8)
--- NOTE | 2024-02-05 09:06 | W.PN.HOSP.TC ---
Addendum entered and electronically signed by Juan David Vora MD 02/05/24 13:43:
I saw and evaluated the patient. I reviewed the resident�s note and agree with findings and plan as documented in the resident�s note.
1. Primary hyperparathyroidism/hypercalcemia -admission calcium of 14.3. Patient was also OTC vitamin D which patient is advised to stop taking. PTH was elevated to 235. Nephrology involved in care and patient goal dose of Pamidronic acid.
Patient is planning to follow-up with endocrinology at [facility] and Dr Jonathan Summers for parathyroidectomy
2. ESBL Ecoli Pyelonephritis/UTI -urine culture report reviewed. ID helping with antibiotics. Patient was changed to Invanz based on sensitivity although developed possible drug rash, antibiotic has been changed to Bactrim therapy. Patient to
finish abx course on 02/08 evening.
3. Nausea/vomiting -patient continues to have persistent nausea at this point. Patient will require follow-up with GI in office if does not improve.
4. Acute transaminitis - minimally elevated. Patient have history of cholecystectomy. No reported biliary abnormalities on CT scan. Hep negative,
5. Presumed IMER -renal function normalizing and creatinine 1.2 today. Baseline unknown. Cannot rule out underlying CKD component.
Discharge home
Original Note:
Today's Communication/Plan
-
discharge home today
Assessment / Plan
Assessment / Plan
68yo F with H kidney stones, tobacco use who presented to ED 01/30 for poor oral intake. 5 days prior to admission, she felt very sick, weak, and was shaking. She also had some vomiting, which last occurred 01/28. She began feeling a little better
but had poor oral intake for several more days.
#Hypercalcemia
#Primary hyperparathyroidism
#Parathyroid adenoma
- Per patient home supplements include '50,000 of vitamin D' every 1-2 weeks (which was her mother's prescription), magnesium, iron, b12
- Corrected Ca on admission 14.3 --> 11.4 (Ca 10.2, albumin 2.5 on CMP) 02/02
- Ca level today 8.7, wnl
- PTH 235 on admission and patient with known history of parathyroid adenoma
- Elevated alk phos likely bone origin
- Discontinue calcium and vitamin D supplementation
- S/p aredia x1. Nephrology following, appreciate recs.
- Will need follow up outpatient regarding surgery for parathyroidectomy
#Tobacco use
- xray no focal masses
- Would benefit from outpatient low dose CT for screening if not done before
#UTI vs pyelonephritis secondary to E Coli ESBL
#Leukocytosis
- WBC 11.4 on admission --> 8.9 today
- Febrile to 101.6 on admission (@1212 10), has been afebrile since.
- Tcurrent 98.0 this AM @0750 02/04
- CT with perinephric edema, nonspecific; possible etiologies recently passed stone vs pyelonephritis
- Urine culture positive for ecoli ESBL --> contact precautions
- ID consulted, appreciate recs. S/p ertapenem x1 day. Reviewed with ID, will switch to bactrim BID x6 days given improvement in Cr.
- Stable for discharge home, continue bactrim per ID
#IMER vs CKD
- Cr on admission 3.2 --> 1.2 today, unknown baseline
- Cr improving with hydration, likely prerenal due to hypovolemia prior to admission
- Avoid nephrotoxic medications and renally dose if appropriate
- Tolerating PO, encourage PO hydration
- Repeat CMP 1 week after hospital discharge
#h/o renal stones- most recently this summer
#Abnormal urinary protein electrophoresis
- Urinary free kappa light chain elevated 362.48 mg/L; urinary free lambda light chain elevated 65.93 mg/L. Inconclusive in evaluation of multiple myeloma which requires 24 hour urine collection or serum light chain analysis. Serum protein
electrophoresis pending.
- Follow up with PCP
#Transaminitis
- AST, ALT, Tbili elevated on admission --> Tbili downtrended, wnl; AST ALT overall stable
- Alk phos chronically elevated, likely bone origin rather than biliary
- Repeat CMP ~1 week after hospital discharge. If AST, ALT remain elevated, follow up with PCP vs GI outpatient.
- Hepatitis panel negative
#Constipation- resolved
- Will give standing daily miralax
#Anemia
- Hgb 12.1 on admission --> 11.6 today
- Hgb overall stable
- No signs of acute blood loss or bruising
- Recommend repeat CBC 1 week after discharge
- Consider checking iron studies, b12 outpatient with PCP
#Pruritic rash on back, most likely folliculitis
- Possible etiologies include folliculitis, contact dermatitis secondary to changes in hygiene routine and products while in hospital. Less likely drug reaction given absence of hives
- No other signs of systemic allergic reaction
- Can use benadryl prn for comfort
- Improving today
- Reassess if worsening symptoms
#Nausea
- Unknown etiology, possibly related to pyelonephritis vs GI cause
- Tolerating PO diet, no emesis overnight
- Will discharge with zofran prn
- Follow up with PCP or GI if nausea does not improve
#H/o diverticulosis
#H/o melanoma s/p excision 2005 from R leg
#Mild L1 compression deformity, likely chronic, seen on CT
Code status: full
Diet: Regular
VTE ppx: ambulation as tolerated, heparin bid
Dispo planning: discharge home today
Anticipated Discharge: Today
Subjective/Interval History
-
Date of Service: February 05, 2024
No acute events overnight. She feels well and would like to go home. She denies lightheadedness, dizziness, chest pain, shortness of breath, vomiting, diarrhea, constipation. Reports mild nausea this morning, relieved with 5mg reglan. Tolerating
regular diet and PO hydration. Ambulating without assistance.
Objective Data
-
Labs:
Laboratory Results
02/05/24
08:18
WBC 8.9
Hgb 11.6 L
Hct 34.1 L
Plt Count 467 H D
Sodium Pending
Potassium Pending
Chloride Pending
Carbon Dioxide Pending
BUN Pending
Creatinine Pending
Glucose Pending
Calcium Pending
Total Bilirubin Pending
AST Pending
ALT Pending
Alkaline Phosphatase Pending
Vital Signs:
Vital Signs
Temp Pulse Resp BP Pulse Ox
98.0 F 69 18 143/80 97
02/05/24 07:50 02/05/24 07:50 02/05/24 07:50 02/05/24 07:50 02/05/24 07:50
I&O
02/04/24 02/05/24 02/06/24
06:59 06:59 06:59
Intake Total 1999 1390 / 1390
Output Total 2100 / 2099
Balance 1999 -710 / -710
Review of Systems
-
History Source: Patient
All other systems: Reviewed and negative
Physical Exam
-
General: Well Developed, Well Nourished, No Apparent Distress, Comfortable and Conversant
HEENT: Normocephalic and Atraumatic
Respiratory: Non Labored Respirations
Cardiac: Regular Rhythm
GI: Soft, Nontender, Nondistended and Normal Bowel Sounds
Genito-urinary: No Costovertebral Tender
Musculoskeletal: No Cyanosis and No Edema
Skin: Warm, Dry and Rash (folliculitis on back, improving)
Neuro: Awake, Alert, Oriented, AO x 3 and Nonfocal/Grossly Intact
Psych: Calm and Intact Judgement/Insight
[2024-02-05 09:11] LABS: ALT (SGPT) 93 U/L (0-35); AST (SGOT) 74 U/L (14-36); Albumin 3.1 g/dl (3.5-5.0); Alkaline Phosphatase 218 U/L (38-126); Blood Urea Nitrogen 18 mg/dl (7-17); Calcium 8.7 mg/dl (8.4-10.2); Carbon Dioxide 25 mmol/L (22-30); Chloride 107 mmol/L (98-107); Estimated Creatinine Clearance 49 ml/min; Glucose 88 mg/dl (70-99); Potassium 3.5 mmol/L (3.5-5.1); Sodium 141 mmol/L (135-145); Total Protein 5.9 g/dl (6.3-8.2); eGFR 49.92
--- NOTE | 2024-02-05 09:51 | W.PN.ID1 ---
Date of Service
Date of Service: February 05, 2024
Today's Communication
- c/w bactrim at my recommendation - 7 day course, 02/02-02/08 hydrate while on bactrim
- follow up with pcp
Assessment / Plan
Pyelonephritis due to ESBL E coli
Probable passed renal stone
IMER - improving
H/o stones
- 100K ESBL E coli from the urine
- c/w bactrim at my recommendation - 7 day course, 02/02-02/08 hydrate while on bactrim
- follow up with pcp
Folliculitis
- let patient shower, should be self limited; not a drug rash
Chief Complaint
-: UTI
Subjective / Review of Systems
afebrile
no events overnight
Vital Signs / Physical Exam
Vital Signs
Vital Signs
Temp Pulse Resp BP Pulse Ox
98.0 F 69 18 143/80 97
02/05/24 07:50 02/05/24 07:50 02/05/24 07:50 02/05/24 07:50 02/05/24 08:00
Physical Exam
Constitutional: No Acute Distress
Cardiovascular: Regular Rate and S1/S2; Negative Murmur or Rub
Pulmonary: Clear and Symmetric; Negative Wheezes or Rales
Gastrointestinal: Soft, Non Tender, Non Distended and Normal Bowel Sounds
Skin: Warm, Dry and Rash (folliculitis of the back stable - less pruritic today); Negative Jaundice
Objective Data
Lab Data
Lab Results
02/05/24 08:18
02/05/24 08:18
Estimated Creat Clear 49 ml/min 02/05/24 08:18
Total Bilirubin 1.0 mg/dl (0.2-1.3) 02/05/24 08:18
AST 74 U/L (14-36) H 02/05/24 08:18
ALT 93 U/L (0-35) H 02/05/24 08:18
Alkaline Phosphatase 218 U/L (38-126) H 02/05/24 08:18
Most recent labs reviewed.
Micro Results:
01/31/24 15:53 Blood Culture - Preliminary
Blood/Venous No Growth in 4 days- Final report to follow
01/31/24 13:11 Urine Culture - Final
Urine Escherichia coli - ESBL
01/31/24 13:11 Influenza Types A & B (JENNYFER) - Final
Nasal Swab Negative for Influenza A & B, NAAT
Negative results must be combined with clinical observations
and patient history.
Nucleic Acid Amplification test (NAAT)performed on the
[employer] platform.
Care Review
Plan reviewed with: Physician (dr wheeler - [place])
[2024-02-05 11:25] VITALS: BP 135/86
--- NOTE | 2024-02-05 12:43 | CM ---
Chart reviewed and welfare case worker met with patient today and patient is for discharge to home, no needs.
Plan; Home no needs.
--- NOTE | 2024-02-05 13:41 | W.PN.NEPH.PH ---
Today's Communication / Plan
-
ok for d/c
Assessment/Plan
-
IMP:
Febrile illness
perinephric edema Rt>left, recently passed stone as per history and can not r/o pyelo
Acute renal failure-no baseline
Acute on chronic Hypercalcemia
K stone
Transaminitis
mild hypoalbuminemia
Diverticulosis/diverticulitis Hx
Melanoma with removal from right leg 2005
Plan:
IMER-improving cr 1.2
hypercalcemia felt from primary hyperparathyroidism
she will return to [place]
will need repeat Parathyroid nuclear scan as outpatient and referral to surgery for PTX (Dr. Summers, [facility])
lower pole parathyroid adenoma seen on 09/30/20 PTHscan
encouraged to increase fluid intake
abx per ID for ESBL UTI, changed to Bactrim since allergic to Ertapenem
BMP in 1week with PCP
she also recommended to see ENdo locally
f/\\u PCP
-
-
Date of Service: February 05, 2024
CC / HPI / ROS
-
Chief Complaint:
IMER
History of Present Illness:
IMER/Cr better at 1.2
Calcium normalized
BP stable
acidosis better 25
Review of Systems:
no CP/SOB
no n/v
Labs
-
Labs:
WBC 8.9 10^3/uL (4.8-10.8) 02/05/24 08:18
RBC 4.08 10^6/uL (4.20-5.40) L 02/05/24 08:18
Hgb 11.6 g/dL (12.0-16.0) L 02/05/24 08:18
Hct 34.1 % (37.0-47.0) L 02/05/24 08:18
Plt Count 467 10^3/uL (130-400) H D 02/05/24 08:18
Sodium 141 mmol/L (135-145) 02/05/24 08:18
Potassium 3.5 mmol/L (3.5-5.1) 02/05/24 08:18
Chloride 107 mmol/L (98-107) 02/05/24 08:18
Carbon Dioxide 25 mmol/L (22-30) 02/05/24 08:18
BUN 18 mg/dl (7-17) H 02/05/24 08:18
Creatinine 1.2 mg/dL (0.6-1.0) H 02/05/24 08:18
eGFR 49.92 02/05/24 08:18
Glucose 88 mg/dl (70-99) 02/05/24 08:18
Calcium 8.7 mg/dl (8.4-10.2) 02/05/24 08:18
Phosphorus Cancelled 01/31/24 16:01
Albumin 3.1 g/dl (3.5-5.0) L 02/05/24 08:18
Physical Exam
-
Vital Signs:
Vital Signs
Temp Pulse Resp BP Pulse Ox
98.2 F 66 16 135/86 96
02/05/24 11:25 02/05/24 11:25 02/05/24 11:25 02/05/24 11:25 02/05/24 11:25
Cardiovascular:: Regular rate and rhythm
Respiratory:: Bilateral: CTA
Lung Excursion:: Normal
Abdomen:: Nontender and Soft
Extremity Edema:: None: Bilateral:
Batista Catheter: No
--- NOTE | 2024-02-05 16:32 | W.DCSUMMARY ---
Discharge Summary
Discharge Data
Date of Admission: 01/31/24
Date of Discharge: 02/05/24
-
Pending Results: Yes
Additional Pending Results:
serum protein electrophoresis
Hospital Course
Discharging Physician : Dr. Zhang, Dr. Geovani Vora
Disposition : Home
Primary care physician : Darrell Mcgregor
Principal Discharge diagnosis : Hypercalcemia secondary to primary hyperparathyroidism and parathyroid adenoma, UTI/pyelonephritis secondary to E coli ESBL, acute kidney injury, transaminitis
Chronic Discharge diagnosis : H/o renal stones, chronic hypercalcemia, chronic anemia
Hospital Course : Presented to ED for nausea/vomiting, weakness, poor oral intake. She was found to have hypercalcemia, which was treated with IV fluids and aredia per nephrology. Her urinalysis was consistent with UTI and abd/pelvis CT showed
possible pyelonephritis. She was treated with empiric antibiotics pending urine culture, which eventually showed E Coli ESBL and ID was consulted. She had IMER with Cr 3.2 on admission, which trended down to 1.2. She was discharged with PO bactrim
BID per ID. On day of discharge she was stable, and she was discharged home.
Important imaging findings :
Abd/pelvis CT 01/31/24
IMPRESSION:
1. Mild bilateral renal/perinephric edema, right greater than left. Findings nonspecific with differential including recently passed stone or ascending urinary tract infection/pyelonephritis, in the appropriate clinical context. Evaluation limited
without contrast.
2. Mild L1 compression deformity, new from 2016 and age indeterminate, although chronic appearing. Recommend correlation for any point tenderness in this region.
3. No other significant abnormality identified in the abdomen or pelvis, within the limits of unenhanced CT, as described above.
Chest xray 02/01/24
IMPRESSION:
No acute cardiopulmonary process. Minor atelectasis or scarring in the left lower lobe.
Procedure findings : N/A
Discharge Plan
-
Patient Disposition: Home (Routine Discharge)
Discharge Diagnosis/Procedures: Hypercalcemia secondary to primary hyperparathyroidism and parathyroid adenoma, UTI/pyelonephritis secondary to E coli ESBL, acute kidney injury, transaminitis
Condition: Good
Diet: As tolerated and Regular
Additional Diets: Stay well hydrated
Activity: No restrictions
Driving Restrictions: As prior to admission
Bathing Restrictions: OK to Shower
Blood Work: CBC, CMP 1 week after discharge
Instructions: Dehydration, Adult (DC), Hyperparathyroidism (DC), Urinary tract infection - Discharge instructions
Referrals:
Jonathan Summers MD [Active] -
Hernan Damon MD [Active] -
()
Darrell Mcgregor MD [Family Provider] - in one week (Follow up with primary care provider in 1 week)
Additional Discharge Medication Instructions: New medications:
- Bactrim (also known as sulfamethoxazole-trimethoprim): Take 1 tab two times per day. Continue taking until you finish all of the pills in the bottle.
- Zofran (also known as odansetron): Take 1 tab as needed for nausea, up to 3 times per day.
Stop taking aleve until you see your primary care doctor and recheck your kidney function. You can take tylenol for pain if you need to.
Stop taking the vitamin D supplement that was not prescribed to you.
Prescriptions:
New
ondansetron 4 mg tablet,disintegrating
4 mg PO TID PRN (Reason: nausea and vomiting) Qty: 20 0RF
sulfamethoxazole-trimethoprim [Bactrim DS] 800-160 mg tablet
1 tab PO BID Qty: 9 0RF
Continued
cyanocobalamin (vitamin B-12) 1,000 mcg Tablet
1,000 mcg PO DAILY
ferrous sulfate 325 mg (65 mg iron) Tablet
325 mg PO DAILY
magnesium oxide 400 mg magnesium Tablet
400 mg PO DAILY
Discontinued
naproxen sodium [Aleve] 220 mg Tablet
220 mg PO BIDPRN PRN (Reason: mild pain)
Discharge Orders:
Discharge Patient (As Directed); Ordered 02/05/24
Ordered By: Tahira Zhang
Discharge Date and Time
Discharge Date/Time: 02/05/24 13:53
Print Language: GEORGIAN
[2024-02-06 10:21] LABS: Albumin 2.43 g/dL (3.75-5.01); Alpha 1 Globulin 0.55 g/dL (0.19-0.46); Alpha 2 Globulin 0.96 g/dL (0.48-1.05); SPEP IFE Reflex IFE Done; Total Protein-Electrophoresis 5.3 g/dL (6.3-8.2)
[2024-02-07 07:25] LABS: IgA 150 mg/dL (68-408); IgG 724 mg/dL (768-1632); IgM 73 mg/dL (35-263)
== END 2024-02-05 13:53 | disposition home or self-care (01) | DRG 683 ==
LOC: 4 WEST ACU 16:29
PROVIDERS: Clinical Nurse Specialist Family Health; Physician Assistant; Student in an Organized Health Care Education/Training Program; ADMITTING PHYSICIAN Hospitalist; ATTENDING PHYSICIAN Hospitalist; CONSULT PHYSICIAN Internal Medicine; CONSULT PHYSICIAN Student in an Organized Health Care Education/Training Program; EMERGENCY PHYSICIAN Emergency Medicine; FAMILY PHYSICIAN Internal Medicine
DX: N17.9 Acute kidney failure, unspecified (principal); Z16.12 Extended spectrum beta lactamase (ESBL) resistance; N12 Tubulo-interstitial nephritis, not specified as acute or chronic; E88.09 Other disorders of plasma-protein metabolism, not elsewhere classified; F17.200 Nicotine dependence, unspecified, uncomplicated; B96.20 Unspecified Escherichia coli [E. coli] as the cause of diseases classified elsewhere; D35.1 Benign neoplasm of parathyroid gland; E21.0 Primary hyperparathyroidism; D72.829 Elevated white blood cell count, unspecified; K59.00 Constipation, unspecified; R79.89 Other specified abnormal findings of blood chemistry; R60.9 Edema, unspecified; D64.9 Anemia, unspecified; R74.01 Elevation of levels of liver transaminase levels; L29.9 Pruritus, unspecified; R21 Rash and other nonspecific skin eruption; K21.9 Gastro-esophageal reflux disease without esophagitis; Z87.19 Personal history of other diseases of the digestive system; Z85.820 Personal history of malignant melanoma of skin; Z90.49 Acquired absence of other specified parts of digestive tract; Z88.5 Allergy status to narcotic agent; Z87.442 Personal history of urinary calculi; Z82.49 Family history of ischemic heart disease and other diseases of the circulatory system; Z83.3 Family history of diabetes mellitus; Z11.52 Encounter for screening for COVID-19
CPT/HCPCS: 71046; 74176; 80048; 80053; 81003; 81015; 82306; 82310; 82570; 82784; 83521; 83690; 83735; 83970; 84100; 84155; 84156; 84165; 84300; 84443; 85025; 85027; 86334; 86335; 86708; 86803; 87040; 87086; 87088; 87186; 87340; 87502; 87811; 93005; 96361; 96374; 97116; 97162; 97530; 99285; 99406; J1335; J2430

== ENCOUNTER → 2024-02-23 09:29 | Day surgery (SDC) | payer MEDICARE, SELFPAY ==
[2024-02-23 10:34] LABS: % Basophils 0.7 % (0-2); % Eosinophils 5.2 % (0-6); % Immature Granulocytes 0.2 % (0-0.5); % Lymphocytes 25.1 % (20.5-51.1); % Monocytes 8.7 % (1.7-9.3); % Neutrophils 60.1 % (42.2-75.2); Absolute Eosinophils 0.3 10^3/uL (0-0.7); Absolute Lymphocytes 1.4 10^3/uL (1.2-3.4); Absolute Monocytes 0.5 10^3/uL (0.1-0.6); Absolute Neutrophils 3.3 10^3/uL (1.4-6.5); Hematocrit 39.2 % (37.0-47.0); Hemoglobin 12.8 g/dL (12.0-16.0); Mean Corp Hgb Conc. 32.7 g/dL (33.0-37.0); Mean Corpuscular Hgb 28.4 pg (27.0-31.0); Mean Corpuscular Volume 87.1 fL (81.0-99.0); Mean Platelet Volume 10.4 fL (7.4-10.4); Nucleated Red Blood Cells % 0 %; Platelet Count 337 10^3/uL (130-400); Red Cell Dist. Width 14.1 % (11.5-14.5); White Blood Cell Count 5.4 10^3/uL (4.8-10.8)
[2024-02-23 10:45] LABS: INR 0.94; PT 12.6 Sec (11.4-14.6)
[2024-02-23 10:46] LABS: APTT 33.2 Sec (23.4-35.0)
[2024-02-23 11:07] LABS: ALT (SGPT) 23 U/L (0-35); AST (SGOT) 24 U/L (14-36); Albumin 4.4 g/dl (3.5-5.0); Alkaline Phosphatase 126 U/L (38-126); Blood Urea Nitrogen 13 mg/dl (7-17); Calcium 11.2 mg/dl (8.4-10.2); Carbon Dioxide 23 mmol/L (22-30); Chloride 106 mmol/L (98-107); Glucose 86 mg/dl (70-99); HDL Cholesterol 46 mg/dl; LDL Cholesterol, Calculated 149 mg/dl; Potassium 4.8 mmol/L (3.5-5.1); Sodium 140 mmol/L (135-145); Total Bilirubin 0.6 mg/dl (0.2-1.3); Total Cholesterol 243 mg/dl (50-199); Total Protein 7.2 g/dl (6.3-8.2); Triglyceride 242 mg/dl (10-149); Very Low Density Lipoprotein 48 mg/dl (0-30); eGFR > 60.00
[2024-02-23 11:37] LABS: TSH 1.23 uIU/ml (0.47-4.68)
== END ==
LOC: SDSPAT 09:29
PROVIDERS: ATTENDING PHYSICIAN Surgery; FAMILY PHYSICIAN Internal Medicine; OTHER PHYSICIAN Hospitalist; OTHER PHYSICIAN Specialist; REFERRING PHYSICIAN Nurse Practitioner
DX: Z01.810 Encounter for preprocedural cardiovascular examination (principal); Z01.811 Encounter for preprocedural respiratory examination
CPT/HCPCS: 93005; 36415; 80053; 80061; 84443; 85025; 85610; 85730

== ENCOUNTER 2024-03-06 06:24 | Day surgery (SDC) | payer MEDICARE, SELFPAY ==
[2024-02-23 10:11] VITALS: BMI 26.0
[2024-03-06] VITALS (10 sets, daily range): BP systolic 111–143; BP diastolic 63–92; BMI 26.0
[2024-03-06] MEDS: NEURONTIN 300 MG PO (09:00)
[2024-03-06] MEDS: TYLENOL 1000 MG PO (09:00)
[2024-03-06] MEDS: HEPARIN 5000 UNITS SC (09:00)
[2024-03-06] MEDS: NORMOSOL-R/PLASMALYTE-A 1000 IV (09:04)
[2024-03-06 10:54] LABS: Turbo PTH 590.9 pg/ml (13.6-85.8)
--- NOTE | 2024-03-06 11:14 | OR.RPT ---
Operative Report
Operative Report
Date of Operation: March 06, 2024
Preoperative Diagnosis: �Parathyroid hyperparathyroidism - E210
Postoperative Diagnosis: Same
Surgeon: Jonathan Summers M.D.
Operation: Minimally Invasive right Inferior Parathyroidectomy - 81946
Anesthesia: GET
Estimated Blood Loss: 3 cc
Drains: None
Specimen: �Right inferior neck nodule, rule out parathyroid adenoma
Complications: �None
Procedure:
The patient was taken to the operating room and placed in the usual supine position. After adequate general endotracheal anesthesia was established, the patient's neck was extended, prepped, and draped in the typical sterile fashion. A 4 cm
transcervical incision was made two fingerbreadths above the sternal notch. The skin incision was made with the #15 blade, and this was taken through the skin into the subcutaneous tissue. The underlying platysma muscle was divided, and subplatysmal
flaps were created superiorly to the thyroid cartilage and inferiorly to the sternal notch. Strap muscles were identified and at the midline.
Attention was turned to the patient's right side of the neck. The right thyroid lobe was mobilized medially. During this process, the right recurrent laryngeal nerve was identified and preserved throughout the surgery. The right lower neck nodule
was identified and noted to be enlarged, excised, and sent to the pathology department, which showed a hypercellular parathyroid gland. The normal-appearing right superior parathyroid gland was identified and preserved. The intraoperative PTH levels
normalized.
After obtaining adequate hemostasis, the strap muscles were reapproximated with #3-0 Vicryl in a running fashion. The platysma muscle was reapproximated with #3-0 Vicryl in an interrupted fashion, and the skin was approximated with #4-0 Monocryl in
a running subcuticular fashion. The Steri-Strips and sterile dressings were placed. The patient tolerated the procedure well. The final instrument, needle, and sponge counts were correct. The patient was extubated and transferred to the PACU.
[2024-03-06 11:43] LABS: Turbo PTH 41.8 pg/ml (13.6-85.8)
== END 2024-03-06 13:24 | disposition home or self-care (01) ==
LOC: SDS 06:24
PROVIDERS: ATTENDING PHYSICIAN Surgery
DX: E21.0 Primary hyperparathyroidism (principal)
CPT/HCPCS: 60500; 88305; 88332; 83970; 88331

== ENCOUNTER 2024-03-24 18:20 | Emergency (ER) | payer MEDICARE, SELFPAY ==
[2024-03-24 18:21] VITALS: BP 128/82
[2024-03-24 19:08] VITALS: BMI 26.3
[2024-03-24] MEDS: NSS 1000 IV (19:14)
[2024-03-24 19:16] VITALS: BP 109/75
[2024-03-24 19:26] LABS: % Basophils 0.3 % (0-2); % Eosinophils 0.5 % (0-6); % Immature Granulocytes 0.3 % (0-0.5); % Lymphocytes 7.4 % (20.5-51.1); % Monocytes 11.5 % (1.7-9.3); Absolute Eosinophils 0.1 10^3/uL (0-0.7); Absolute Lymphocytes 0.9 10^3/uL (1.2-3.4); Absolute Monocytes 1.4 10^3/uL (0.1-0.6); Absolute Neutrophils 9.6 10^3/uL (1.4-6.5); Hemoglobin 11.9 g/dL (12.0-16.0); Mean Corpuscular Hgb 28.3 pg (27.0-31.0); Mean Corpuscular Volume 83.1 fL (81.0-99.0); Mean Platelet Volume 9.6 fL (7.4-10.4); Nucleated Red Blood Cells % 0 %; Platelet Count 343 10^3/uL (130-400); Red Blood Cell Count 4.21 10^6/uL (4.20-5.40); Red Cell Dist. Width 13.9 % (11.5-14.5)
[2024-03-24 19:46] LABS: ALT (SGPT) 19 U/L (0-35); AST (SGOT) 22 U/L (14-36); Albumin 4.2 g/dl (3.5-5.0); Alkaline Phosphatase 95 U/L (38-126); Blood Urea Nitrogen 20 mg/dl (7-17); Calcium 9.2 mg/dl (8.4-10.2); Carbon Dioxide 21 mmol/L (22-30); Chloride 103 mmol/L (98-107); Estimated Creatinine Clearance 37 ml/min; Glucose 119 mg/dl (70-99); Potassium 4.2 mmol/L (3.5-5.1); Sodium 139 mmol/L (135-145); Total Protein 7.1 g/dl (6.3-8.2); eGFR 41.49
[2024-03-24 19:52] LABS: COVID-19 Antigen Negative (Negative)
[2024-03-24 20:00] VITALS: BP 112/68
--- NOTE | 2024-03-24 20:47 | ED.GENMED ---
Addendum entered and electronically signed by Fernie Justin PA-C 03/28/24 09:51:
Patient's urine culture shows 100,000 CFU ESBL E. coli and Streptococcus species. There is multidrug resistance however patient is susceptible to Bactrim. Contacted patient who states that she is feeling better from her visit to the ER. Has had
similar before requiring Bactrim. 1 week course of Bactrim sent to pharmacy. No need to renally dose based off her current labs from the other day. She will follow-up with primary care provider.
Original Note:
History of Present Illness
General
Chief Complaint: Fever
Source: patient and family
Exam Limitations: none
Time Seen by Provider: 03/24/24 18:47
Nursing documentation reviewed up to this point in time: agreed with
History of Present Illness
History of Present Illness:
68-year-old female past medical history of recent episode of renal failure secondary to hyperparathyroidism presenting to the emergency department today with concerns of a fever of 103.5 prior to arrival associated nausea diarrhea flank pain.
Patient does milligrams of Tylenol prior to arrival. Denies any chest pain shortness of breath any recent upper respiratory symptoms.
Past History
Past History
ED Past Medical History: GERD and Other (Diverticulosis, Diverticulitis, melanoma)
Social History
Personal: Single
Living: alone
Employment: Employed
Review of Systems
Review of Systems
Allergies reviewed?: Yes
All Other Systems: ROS reviewed and negative except as documented in HPI and ROS
Phy Exam
Physical Exam
Physical Exam:
GENERAL: Alert , in no apparent distress
EYE: pupils equal and reactive
NECK: Supple, no significant adenopathy.
ENT: o/p clr, mmm.
CARDIAC: Regular rate and rhythm .
LUNGS: Clear breath sounds bilaterally, no acute respiratory distress, no wheezes/rales/rhonchi
ABDOMEN: Soft, without focal tenderness, no r/g, no cvat
NEUROLOGICAL: Alert and oriented, no focal neuro deficits
SKIN: Warm and dry, skin intact.
MUSCULOSKELETAL: No edema, well perfused.
PSYCH: Normal and appropriate interaction.
Course
Orders/Labs/Results
Orders:
Orders
03/24/24 19:02
CT Abd/pel Without Iv Or Oral Urgent
Comment:
Reason For Exam: r flank pain
0.9% Sodium Chloride 1000 ml [Nss] 1,000 ml IV BOLUS
03/24/24 19:07
COVID-19 Antigen Urgent
Source: Nasal Swab
Complete Blood Count/With Diff Urgent
Comprehensive Metabolic Panel Urgent
Influenza A+B Rapid Molecular Urgent
JANA Source: Nasal Swab
Specimen Description:
03/24/24 21:05
Urinalysis Reflex To Culture Urgent
Date Specimen was Collected: 03/24/24
Time Specimen was Collected: 20:47
Urine Microscopic Reflex Cult Urgent
Urine Culture Urgent
JANA Source: U
Specimen Description:
Obtained by: Random
Date Specimen was Collected: 03/24/24
Time Specimen was Collected: 20:47
03/24/24 21:52
Ampicillin/Sulbactam 3 G [Unasyn] 3 gm 0.9% Sodium Chloride 100 ml [Nss] 100 ml IV NOW
Abnormal Lab Results
03/24/24 03/24/24
19:07 21:05
WBC 12.0 H 10^3/uL
(4.8-10.8)
Hgb 11.9 L g/dL
(12.0-16.0)
Hct 35.0 L %
(37.0-47.0)
Absolute Neuts (auto) 9.6 H 10^3/uL
(1.4-6.5)
Absolute Lymphs (auto) 0.9 L 10^3/uL
(1.2-3.4)
Absolute Monos (auto) 1.4 H 10^3/uL
(0.1-0.6)
Neutrophils % 80.0 H %
(42.2-75.2)
Lymphocytes % 7.4 L %
(20.5-51.1)
Monocytes % 11.5 H %
(1.7-9.3)
Carbon Dioxide 21 L mmol/L
(22-30)
BUN 20 H mg/dl
(7-17)
Creatinine 1.4 H mg/dL
(0.6-1.0)
Glucose 119 H mg/dl
(70-99)
Urine Ketones Trace A
(Negative)
Ur Occult Blood Reflex 2+ A
(Negative)
Urine Bilirubin 1+ A
(Negative)
Urine Urobilinogen 3+ A
(Neg - 1+)
Leukocyte Esterase Rfl 2+ A
(Negative)
Urine RBC 11-15 A /HPF
(0-2)
Urine WBC (Reflex) 30-40 A /HPF
(0-5)
Urine Bacteria (Reflex) Many A
(Negative)
Urine Albumin (Reflex) 1+ A
(Neg - Trace)
03/24/24 19:07
03/24/24 19:07
Vital Signs
Initial and Last Documented VS:
Initial Vital Signs
Temp Pulse Resp BP Pulse Ox
100.6 F H 104 20 128/82 99
03/24/24 18:21 03/24/24 18:21 03/24/24 18:21 03/24/24 18:21 03/24/24 18:21
Last Documented Vital Signs
Temp Pulse Resp BP Pulse Ox
98.4 F 78 20 114/74 97
03/24/24 21:08 03/24/24 23:00 03/24/24 23:00 03/24/24 23:00 03/24/24 19:00
MDM/Problems Addressed
MDM/Problems Addressed:
68-year-old female presenting to the emergency department today with concerns of fever prior to arrival associated nausea few episodes of diarrhea and right-sided flank pain started yesterday. Tylenol was taken prior to arrival. Patient with
low-grade temperature upon arrival here otherwise vital signs are normal. Patient no distress slight white count of 12 creatinine level 1.4 here similar to previous levels. Due to the flank pain concern CT scan was performed that showed mild
stranding along the sigmoid colon potentially consistent with acute uncomplicated sigmoid diverticulitis. There also is some perinephric stranding along the right kidney which is similar to previous however cannot rule out pyelo-. Here patient
generally well-appearing vital signs improved throughout ER stay. Patient started on antibiotics for possible UTI versus diverticulitis. Otherwise urine sent for culture able for outpatient follow-up return precautions given.
*Critical Care Note
Total Time (30-74mins, 75-104mins- exclusive of procedures): Not Applicable
ED Attending Note
-
Portions of this chart may have been created with voice recognition software.� Occasional wrong word or��sound alike� substitutions may have occurred due to the inherent limitations of voice recognition software.
Discharge Plan
Departure
Patient Disposition: Home (Routine Discharge)
Date of Disposition: 03/24/24
Time of Disposition: 23:03
Patient with high blood pressure during this ER visit?: No
Condition: Good
Covid-19: Not Applicable
Discharge Problem:
Diverticulitis, Acute UTI
Instructions: Diverticulitis (DC), Urinary Tract Infection, Adult ED
Prescriptions:
New
amoxicillin-pot clavulanate 875-125 mg tablet
1 tab PO BID 7 Days Qty: 14 0RF
Referrals:
Darrell Mcgregor MD [Family Provider] -
Activity Restrictions/Additional Instructions:
You came to the emergency department today with concerns of fever diarrhea and flank pain. Here initially were febrile and tachycardic but that improved during your stay. You had a CT scan that had findings consistent with potential mild
diverticulitis and urinary tract infection. Please take the prescribed antibiotic and follow-up closely as an outpatient. Return to the department for any worsening, new or concerning symptoms.
Interventions
Interventions:
*Risk Screen - Suicide Last Done: 03/24/24 18:21
*General Assessment Last Done: 03/24/24 18:21
*Neglect/Abuse Screening Last Done: 03/24/24 20:47
ED- Fall Risk Assessment Last Done: 03/24/24 19:23
*ED COVID-19 Vaccine History Last Done: 03/24/24 18:21
*Nursing Disposition Last Done: 03/24/24 23:11
ED- Neurological Assessment Last Done: 03/24/24 19:23
ED-Skin Assessment Last Done: 03/24/24 19:23
Discharge Date and Time
Discharge Date/Time: 03/24/24 23:11
Print Language: LAO
[2024-03-24 21:00] VITALS: BP 116/75
[2024-03-24 21:14] LABS: Urine Albumin 1+ (Neg - Trace); Urine Bilirubin 1+ (Negative); Urine Character Slightly Cloudy (Clear); Urine Color Yellow; Urine Glucose Negative (Negative); Urine Ketone Trace (Negative); Urine Leukocyte 2+ (Negative); Urine Nitrite Negative (Negative); Urine Occult Blood 2+ (Negative); Urine Urobilinogen 3+ (Neg - 1+)
[2024-03-24 21:23] LABS: Urine Urothelial Cell 0-2 /LPF (FEW)
[2024-03-24 21:24] LABS: Urine Bacteria Many (Negative); Urine White Cell 30-40 /HPF (0-5); Urine White Cell Cast 0-2 /LPF
--- NOTE | 2024-03-24 21:50 | EDRN ---
Called pharmacy for francie
[2024-03-24 22:00] VITALS: BP 121/76
[2024-03-24] MEDS: UNASYN IV (22:13)
[2024-03-24 23:00] VITALS: BP 114/74
== END 2024-03-24 23:11 | disposition home or self-care (01) ==
LOC: EMR 18:20
PROVIDERS: Physician Assistant; EMERGENCY PHYSICIAN Emergency Medicine; FAMILY PHYSICIAN Internal Medicine
DX: R50.9 Fever, unspecified (principal); R11.0 Nausea; K57.32 Diverticulitis of large intestine without perforation or abscess without bleeding; N39.0 Urinary tract infection, site not specified; Z11.52 Encounter for screening for COVID-19; E21.3 Hyperparathyroidism, unspecified; N19 Unspecified kidney failure; F17.210 Nicotine dependence, cigarettes, uncomplicated; Z85.820 Personal history of malignant melanoma of skin; Z90.49 Acquired absence of other specified parts of digestive tract; Z88.5 Allergy status to narcotic agent
CPT/HCPCS: 99285; 96365; 96361; 74176; 80053; 81003; 81015; 85025; 87077; 87086; 87186; 87502; 87811

== ENCOUNTER → 2024-04-13 12:13 | Outpatient (REF) | payer MEDICARE, SELFPAY ==
[2024-04-13 14:37] LABS: Urine Protein < 5 mg/dl (0-12)
[2024-04-13 14:38] LABS: Blood Urea Nitrogen 21 mg/dl (7-17); Calcium 9.4 mg/dl (8.4-10.2); Carbon Dioxide 25 mmol/L (22-30); Chloride 104 mmol/L (98-107); Glucose 96 mg/dl (70-99); Magnesium 1.7 mg/dl (1.6-2.3); Potassium 4.5 mmol/L (3.5-5.1); Sodium 141 mmol/L (135-145); eGFR 55.42
== END ==
LOC: REG 12:13
PROVIDERS: ATTENDING PHYSICIAN Hospitalist
DX: R79.89 Other specified abnormal findings of blood chemistry (principal)
CPT/HCPCS: 36415; 80048; 82043; 82570; 83735; 84156

== ENCOUNTER 2024-11-20 13:30 | Emergency (ER) | payer SELFPAY ==
[2024-11-20 13:43] VITALS: BP 120/67
[2024-11-20] MEDS: TYLENOL 650 MG PO (16:26)
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
== END 2024-11-20 17:16 | disposition home or self-care (01) ==
LOC: EMR 13:30
PROVIDERS: EMERGENCY PHYSICIAN Emergency Medicine; FAMILY PHYSICIAN Internal Medicine
DX: S50.12XA Contusion of left forearm, initial encounter (principal); S50.812A Abrasion of left forearm, initial encounter; V89.2XXA Person injured in unspecified motor-vehicle accident, traffic, initial encounter; Y92.410 Unspecified street and highway as the place of occurrence of the external cause; K21.9 Gastro-esophageal reflux disease without esophagitis; Z85.820 Personal history of malignant melanoma of skin
CPT/HCPCS: 99283; 73090